=== PATIENT | female | born 1945 | race Caucasian/White ===

== ENCOUNTER → 2020-12-28 06:55 | Outpatient (CLI) | payer MEDICARE, SELFPAY ==
[2020-12-28 07:21] LABS: WBC Urine None Seen (0-5/HPF)
[2020-12-28 08:45] LABS: Alanine Aminotransferase 23 IU/L (<35); Albumin 4.3 g/dL (3.5-5.0); Albumin Globulin Ratio 1.6 (1.0-2.8); Alkaline Phosphatase 27 U/L (38-126); Aspartate Aminotransferase 33 IU/L (14-36); BUN Creatinine Ratio 30.5 (6-22); Bilirubin Total 0.2 mg/dL (0.2-1.3); Blood Urea Nitrogen 18 mg/dL (7-17); Calcium 9.2 mg/dL (8.4-10.2); Carbon Dioxide 29 mmol/L (22-32); Chloride 100 mmol/L (98-107); Cholesterol 168 mg/dL (140-199); Estimated Glomerular Filt Rate > 60.0 mL/min (>60); Globulin 2.7 g/dL (1.7-4.1); Glucose 94 mg/dL (80-110); HEMOLYSIS < 15 (0-50); Potassium 4.5 mmol/L (3.4-5.1); Sodium 133 mmol/L (137-145); Triglycerides 49 mg/dL (35-150)
[2020-12-28 08:56] LABS: HDL Cholesterol 116 mg/dL (40-60); LDL Cholesterol Calculated 42 mg/dL (<100)
[2020-12-28 09:37] LABS: Appearance Urine UA CLEAR; Bilirubin Urine UA NEGATIVE (NEGATIVE); Color Urine UA YELLOW; Glucose Urine UA NEGATIVE (Negative); Ketones Urine UA NEGATIVE (NEGATIVE); Leukocyte Esterase Urine UA NEGATIVE (NEGATIVE); Nitrite Urine UA NEGATIVE (Negative); Occult Blood Urine UA 1+ (Negative); Protein Urine UA NEGATIVE (Negative); Specific Gravity Urine UA 1.015 (1.000-1.035); Urobilinogen Urine UA 0.2 E.U./dL (0.2)
[2020-12-28 10:04] LABS: TSH w/ Reflex to FT4 0.77 uIU/mL (0.47-4.68)
[2020-12-28 11:15] LABS: Bacteria Urine Few (2-10); RBC Urine 0-1/HPF (0-5/HPF)
[2020-12-28 11:16] LABS: Culture Indicated Urine Cult Not Indicated
== END ==
PROVIDERS: PCP Internal Medicine; Referring Provider Internal Medicine; Visit Provider Internal Medicine
DX: E03.9 Hypothyroidism, unspecified (principal); M81.0 Age-related osteoporosis without current pathological fracture; R35.0 Frequency of micturition; E78.5 Hyperlipidemia, unspecified
CPT/HCPCS: 36415; 80053; 80061; 81001; 84443

== ENCOUNTER → 2021-01-02 14:37 | Outpatient (CLI) | payer MEDICARE, SELFPAY ==
--- NOTE | 2021-01-02 | DI.MG.S_ITS ---
BILATERAL DIGITAL SCREENING MAMMOGRAM 3D/2D WITH CAD: 01/02/2021 CLINICAL: Routine screening. Comparison is made to exams dated: 09/21/2019 mammogram, 08/17/2018 mammogram, and 06/05/2017 mammogram - outside location. The tissue of both breasts is heterogeneously dense. This may lower the sensitivity of mammography. Current study was also evaluated with a Computer Aided Detection (CAD) system. No significant masses, calcifications, or other findings are seen in either breast. There has been no significant interval change. IMPRESSION: NEGATIVE There is no mammographic evidence of malignancy. A 1 year screening mammogram is recommended. This exam was interpreted at Station ID: [id number]. NOTE: For mammograms, a report in lay terms will be sent to the patient. Approximately 15% of breast malignancies will not be visualized mammographically. In the management of a palpable breast mass, a negative mammogram must not discourage biopsy of a clinically suspicious lesion. Electronically Signed By: Tomasz rao/waqar:01/02/2021 16:56:29 letter sent: Normal Exam ACR BI-RADS Category 1: Negative 3341F
== END ==
PROVIDERS: PCP Internal Medicine; Referring Provider Internal Medicine; Visit Provider Internal Medicine
DX: Z12.31 Encounter for screening mammogram for malignant neoplasm of breast (principal); M81.0 Age-related osteoporosis without current pathological fracture; Z78.0 Asymptomatic menopausal state; E07.9 Disorder of thyroid, unspecified; Z87.891 Personal history of nicotine dependence
CPT/HCPCS: 77063; 77067; 77080

== ENCOUNTER → 2022-02-04 14:34 | Outpatient (CLI) | payer MEDICARE, SELFPAY ==
--- NOTE | 2022-02-04 14:35 | DI.MG.S_ITS ---
BILATERAL DIGITAL SCREENING MAMMOGRAM 3D/2D WITH CAD: 02/04/2022 CLINICAL: Routine screening. Comparison is made to exams dated: 01/02/2021 mammogram - [facility], 09/21/2019 mammogram, 08/17/2018 mammogram, and 06/05/2017 mammogram - outside location. The tissue of both breasts is extremely dense, which lowers the sensitivity of mammography. Current study was also evaluated with a Computer Aided Detection (CAD) system. No significant masses, calcifications, or other findings are seen in either breast. There has been no significant interval change. IMPRESSION: NEGATIVE There is no mammographic evidence of malignancy. A 1 year screening mammogram is recommended. This exam was interpreted at Station ID: [id number]. NOTE: For mammograms, a report in lay terms will be sent to the patient. Approximately 15% of breast malignancies will not be visualized mammographically. In the management of a palpable breast mass, a negative mammogram must not discourage biopsy of a clinically suspicious lesion. Electronically Signed By: Danna tejada/waqar:02/04/2022 15:01:52 letter sent: Normal Exam ACR BI-RADS Category 1: Negative 3341F
== END ==
PROVIDERS: PCP Internal Medicine; Referring Provider Internal Medicine; Visit Provider Internal Medicine
DX: Z12.31 Encounter for screening mammogram for malignant neoplasm of breast (principal)
CPT/HCPCS: 77063; 77067

== ENCOUNTER → 2023-05-30 16:05 | Outpatient (CLI) | payer MEDICARE, SELFPAY | PROVIDERS: PCP Internal Medicine; Visit Provider Nurse Practitioner Family | DX: R30.0 Dysuria (principal) | CPT/HCPCS: 87086 ==

== ENCOUNTER → 2023-07-17 16:29 | Outpatient (CLI) | payer MEDICARE, SELFPAY ==
[2023-07-17 17:58] LABS: Influenza A - CEPHEID Flu A NEGATIVE (NEGATIVE); Influenza B - CEPHEID Flu B NEGATIVE (NEGATIVE); Respiratory Syncytial Virus Negative (Negative)
[2023-07-17 18:04] LABS: COVID-19 CEPHEID 4-PLEX PCR Negative (Negative)
== END ==
PROVIDERS: PCP Internal Medicine; Visit Provider Nurse Practitioner Family
DX: R05.9 Cough, unspecified (principal)
CPT/HCPCS: 0241U

== ENCOUNTER → 2024-04-30 13:53 | Outpatient (CLI) | payer MEDICARE, SELFPAY ==
--- NOTE | 2024-04-30 | DI.MG.S_ITS ---
BILATERAL DIGITAL SCREENING MAMMOGRAM 3D/2D WITH CAD: 04/30/2024 CLINICAL: Routine screening. Family history of breast cancer. Comparison is made to exams dated: 02/04/2022 mammogram, 01/02/2021 mammogram - [facility], and 09/21/2019 mammogram - outside location. Both breasts are extremely dense, which lowers the sensitivity of mammography (category d />75% glandular tissue). Current study was also evaluated with a Computer Aided Detection (CAD) system. No significant masses, calcifications, or other findings are seen in either breast. There has been no significant interval change. IMPRESSION: NEGATIVE There is no mammographic evidence of malignancy. A 1 year screening mammogram is recommended. Based on the Tyrer Cuzick model (a risk assessment model) the patient's lifetime risk is 5.5% and her 10 year risk is 0.0%. According to the ACR, ACS, and NCCN guidelines, an annual breast MRI exam along with mammogram is recommended if the patient's lifetime risk is 20% or greater. This exam was interpreted at Station ID: [id number]. NOTE: For mammograms, a report in lay terms will be sent to the patient. Approximately 15% of breast malignancies will not be visualized mammographically. In the management of a palpable breast mass, a negative mammogram must not discourage biopsy of a clinically suspicious lesion. Electronically Signed By: Tomasz rao/waqar:04/30/2024 15:19:36 letter sent: Normal Exam ACR BI-RADS Category 1: Negative 3341F
== END ==
LOC: MAMMO 13:54
PROVIDERS: PCP Internal Medicine; Referring Provider Internal Medicine; Visit Provider Internal Medicine
DX: Z12.31 Encounter for screening mammogram for malignant neoplasm of breast (principal); R92.343 Mammographic extreme density, bilateral breasts
CPT/HCPCS: 77063; 77067

== ENCOUNTER → 2025-05-06 12:52 | Outpatient (CLI) | payer MEDICARE, SELFPAY ==
--- NOTE | 2025-05-06 12:54 | DI.MG.S_ITS ---
MM screening mammo BI: 05/06/2025. BI-RADS: 1 CLINICAL: 79-year old female for bilateral screening mammogram. Tyrer-Cuzick lifetime risk of 2.9%. Current reported family history of breast cancer: mother. History of ovarian cancer in one first-degree relative. PRIOR EXAMS 04/30/2024, 02/04/2022, 01/02/2021. MAMMOGRAPHY TECHNIQUE: 2D and 3D (tomosynthesis) digital mammographic views obtained, with additional images as needed for full coverage. Current study was also evaluated with a Computer Aided Detection (CAD) system. DENSITY C. The breasts are heterogeneously dense, which may obscure small masses. MAMMOGRAPHY FINDINGS Bilateral: No suspicious mass, asymmetry, microcalcification, or other abnormality seen. No significant change from comparison. IMPRESSION: * No evidence of malignancy. RECOMMENDATIONS Bilateral * Annual screening mammography. OVERALL ASSESSMENT CATEGORY BI-RADS-1: Negative. The [employer] recommends annual screening mammography beginning at age 40 for women with average risk of breast cancer. ELECTRONICALLY SIGNED: Kenyatta Michaels M.D. on 05/06/2025 at 04:20:20 PM PT Interpreting Station ID: [id number]
== END ==
PROVIDERS: PCP Internal Medicine; Referring Provider Internal Medicine; Visit Provider Internal Medicine
DX: Z12.31 Encounter for screening mammogram for malignant neoplasm of breast (principal); R92.333 Mammographic heterogeneous density, bilateral breasts; Z80.3 Family history of malignant neoplasm of breast; Z80.41 Family history of malignant neoplasm of ovary
CPT/HCPCS: 77063; 77067

== ENCOUNTER 2025-08-30 20:57 | Inpatient (IN) | payer MEDICARE, SELFPAY ==
[2025-08-30] VITALS (14 sets, daily range): BP systolic 120–187; BP diastolic 59–83; PULSE 82–114; RESP 15–24; TEMP 37.3–39.4; O2SAT 88–98; BMI 21.4
--- NOTE | 2025-08-30 21:00 | PC.NURSE ---
Pt received 250mL NS during EMS transport. Verbal orders from provider to initiate sepsis fluid protocol. Pt was given additional 250 mL NL bolus from EMS bag plus 1 L ordered bolus for a total of 1.5L.
--- NOTE | 2025-08-30 21:02 | EKG_ITS ---
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
[2025-08-30 21:18] LABS: Add Manual Diff / Slide Review NO; Hematocrit 34.7 % (36-46); Hemoglobin 11.9 g/dL (12.0-16.0); Lymphocytes Absolute Auto 600 /uL (1100-4500); Mean Corpuscular HGB Conc 34.4 % (30-36); Mean Corpuscular Hemoglobin 31.7 PG (26-34); Mean Corpuscular Volume 92.1 fL (80-100); Platelet Count 188 X10^3/uL (150-400)
--- NOTE | 2025-08-30 21:18 | ED_ITS ---
HPI - Fever General Chief Complaint: Altered Mental Status Stated Complaint: Altered, known infection Time Seen by Provider: 08/30/25 21:01 History of Present Illness HPI Narrative: Patient is sent here by ambulance from home for fever and confusion. Patient is awake alert oriented x3 at this time. She say she has had some urinary discomfort for the past few days. No fall or injury. Patient denies any chest pain abdominal pain headache. No neck pain. Patient given Tylenol by EMS. No nausea or vomiting or diarrhea. No cough cold or congestion. Related Data Home Medications ?Medication ?Instructions ?Recorded ?Confirmed levothyroxine 50 mcg tablet 50 mcg PO DAILY 08/31/25 1 10/31/24 Previous Rx's ?Medication ?Instructions ?Recorded fluticasone propionate 50 1 spray intranasal Q12H #16 grams 07/17/23 mcg/actuation nasal spray,suspension (Flonase Allergy Relief) Allergies Allergy/AdvReac Type Severity Reaction Status Date / Time No Known Drug Allergies Allergy Verified 08/30/25 23:05 Review of Systems Review of Systems Narrative: GENERAL: Positive chills, fatigue, malaise, fever, negative sweats. HEENT: Negative sinus pain, ear pain, sore throat RESPIRATORY: Negative dyspnea, cough CARDIOVASCULAR: Negative chest pain, palpitations GASTROINTESTINAL: Negative vomiting, nausea, abdominal pain : Positive dysuria, frequency, negative hematuria MUSCULOSKELETAL: Negative muscle or bony pain SKIN: Negative rash, skin lesions NEUROLOGIC: Negative weakness, numbness ROS Unobtainable: All systems reviewed & are unremarkable except as noted in HPI and below Patient History Social History household members: friend(s) Smoking Status: Former smoker Exam Narrative Exam Narrative: GENERAL: in no distress, not toxic not dyspneic, cachectic appearing HEAD: Normocephalic. EYES: Pupils equal round ENT: Mucous membranes dry NECK: Trachea midline. CARDIOVASCULAR: Regular rate and rhythm, tachycardic RESPIRATORY: Clear to auscultation. Breath sounds equal bilaterally. No wheezes, rales, or rhonchi. GASTROINTESTINAL: Abdomen soft, non-tender BACK: No flank tenderness. EXTREMITIES: No gross deformities. NEURO: AOx3. Clear speech SKIN: Warm and dry PSYCH: Not anxious, is cooperative Initial Vital Signs Initial Vital Signs: Vital Signs Pulse Rate 114 H 08/30/25 21:02 Blood Pressure 187/83 H 08/30/25 21:02 Course Orders Ordered: Acetaminophen (Acetaminophen 325 Mg Tablet) 650 mg PO Q6H PRN PRN Reason: Fever/Mild Pain (1-3) Docusate Sodium (Docusate 100 Mg Capsule) 100 mg PO DAILY [facility] Last Admin: 09/02/25 08:50 Dose: 100 mg Documented By: Admin: 09/01/25 08:08 Dose: 100 mg Documented By: Admin: 08/31/25 12:18 Dose: 100 mg Documented By: JOSE Fluticasone Propionate (Fluticasone 120 [place]/16 Gm [place].Susp) 1 spray NASAL Q12H [facility] Last Admin: 09/02/25 03:15 Dose: 1 spray Documented By: Admin: 09/01/25 14:41 Dose: 1 spray Documented By: Admin: 09/01/25 03:15 Dose: 1 spray Documented By: Admin: 08/31/25 14:42 Dose: 1 spray Documented By: Admin: 08/31/25 03:56 Dose: Not Given Documented By: RENAN Heparin Sodium (Porcine) (Heparin 5,000 Unit/Ml Vial) 5,000 unit SUBCUT BID [facility] Last Admin: 09/02/25 08:50 Dose: 5,000 unit Documented By: Admin: 09/01/25 21:03 Dose: 5,000 unit Documented By: Admin: 09/01/25 08:08 Dose: 5,000 unit Documented By: Admin: 08/31/25 20:43 Dose: 5,000 unit Documented By: Admin: 08/31/25 08:23 Dose: 5,000 unit Documented By: JOSE Ceftriaxone Sodium 2,000 mg/ (Sodium Chloride) 100 mls @ 200 mls/hr IV DAILY [facility] Levothyroxine Sodium (Levothyroxine 50 Mcg Tablet) 50 mcg PO 0600 [facility] Last Admin: 09/02/25 06:00 Dose: 50 mcg Documented By: Admin: 09/01/25 05:57 Dose: 50 mcg Documented By: Admin: 08/31/25 06:12 Dose: 50 mcg Documented By: RENAN Naloxone HCl (Naloxone 0.4 Mg/Ml Vial) 0.2 mg IV Q2MIN PRN PRN Reason: Opiate Reversal Ondansetron HCl (Ondansetron 4 Mg/2 Ml Inj) 4 mg IV Q8HR PRN PRN Reason: Nausea And Vomiting Last Admin: 08/31/25 20:52 Dose: 4 mg Documented By: KG Polyethylene Glycol (Polyethylene Glycol 3350 17 Gm Powd.Pack) 17 gm PO DAILY PRN PRN Reason: consitpation Last Admin: 09/01/25 14:01 Dose: 17 gm Documented By: Admin: 08/31/25 14:41 Dose: 17 gm Documented By: JOSE Sennosides (Sennosides 8.6 Mg Tablet) 8.6 mg PO BID [facility] Last Admin: 09/02/25 08:50 Dose: 8.6 mg Documented By: Admin: 09/01/25 21:03 Dose: 8.6 mg Documented By: Admin: 09/01/25 08:09 Dose: 8.6 mg Documented By: Admin: 08/31/25 20:42 Dose: 8.6 mg Documented By: Admin: 08/31/25 12:19 Dose: 8.6 mg Documented By: JOSE Discontinued Medications Piperacillin Sod/Tazobactam (Sod 4.5 gm/ Sodium Chloride) 100 mls @ 200 mls/hr IV STAT ONE Stop: 08/30/25 21:03 Last Infusion: 08/30/25 22:36 Dose: Infused Documented By: RLCarolina Admin: 08/30/25 21:21 Dose: 200 mls/hr Documented By: YUNG Acetaminophen (Ofirmev) 1,000 mg in 100 mls @ 400 mls/hr IV NOW ONE Stop: 08/30/25 21:21 Last Admin: 08/30/25 21:31 Dose: Not Given Documented By: YUNG Sodium Chloride (Normal Saline 0.9%) 1,000 mls @ 0 mls/hr IV NOW ONE Stop: 08/30/25 21:13 Last Infusion: 08/30/25 22:36 Dose: Infused Documented By: Admin: 08/30/25 21:21 Dose: 1,000 mls/hr Documented By: YUNG Sodium Chloride (Normal Saline 0.9%) 1,000 mls @ 75 mls/hr IV CONT [facility] Last Infusion: 09/01/25 14:36 Dose: 0 mls/hr Documented By: Admin: 09/01/25 05:03 Dose: 75 mls/hr Documented By: Infusion: 09/01/25 05:03 Dose: Infused Documented By: Admin: 08/31/25 16:54 Dose: 75 mls/hr Documented By: Infusion: 08/31/25 16:54 Dose: Infused Documented By: Admin: 08/31/25 03:56 Dose: 75 mls/hr Documented By: RENAN Ceftriaxone Sodium 1,000 mg/ (Sodium Chloride) 100 mls @ 200 mls/hr IV DAILY [facility] Last Infusion: 08/31/25 09:22 Dose: Infused Documented By: Admin: 08/31/25 08:23 Dose: 200 mls/hr Documented By: JOSE Ceftriaxone Sodium 2,000 mg/ (Sodium Chloride) 100 mls @ 200 mls/hr IV DAILY [facility] Last Infusion: 09/01/25 09:40 Dose: Infused Documented By: Admin: 09/01/25 08:09 Dose: Not Given Documented By: Admin: 09/01/25 08:08 Dose: 200 mls/hr Documented By: CARMEN Potassium Chloride (Potassium Chloride 20 Meq Tab) 40 meq PO Q6H [facility] Stop: 08/31/25 16:31 Last Admin: 08/31/25 16:53 Dose: 40 meq Documented By: Admin: 08/31/25 12:19 Dose: 40 meq Documented By: JOSE Potassium Chloride (Potassium Chloride 20 Meq Tab) 40 meq PO NOW ONE Stop: 09/01/25 07:54 Last Admin: 09/01/25 08:08 Dose: 40 meq Documented By: CARMEN Vital Signs Vital signs: Vital Signs - 8 hr 08/30/25 21:02 08/30/25 21:02 08/30/25 21:15 Temperature 103 F H Pulse Rate 114 H 112 H Respiratory Rate 20 Blood Pressure 187/83 H 187/83 H Pulse Oximetry 94 Oxygen Delivery Method Room Air Oxygen Flow Rate 08/30/25 21:35 08/30/25 21:37 08/30/25 21:37 Temperature Pulse Rate 100 H 99 H Respiratory Rate 24 19 Blood Pressure 150/69 H Pulse Oximetry 92 93 Oxygen Delivery Method Oxygen Flow Rate 08/30/25 21:50 08/30/25 22:00 08/30/25 22:00 Temperature 100.4 F H 100 F H Pulse Rate 95 H Respiratory Rate 21 Blood Pressure 141/63 H Pulse Oximetry 88 L Oxygen Delivery Method Room Air Oxygen Flow Rate 08/30/25 22:15 08/30/25 22:15 08/30/25 22:30 Temperature Pulse Rate 92 H 91 H Respiratory Rate 19 17 Blood Pressure 135/63 Pulse Oximetry 95 96 Oxygen Delivery Method Nasal Cannula Oxygen Flow Rate 2 08/30/25 22:30 08/30/25 22:45 08/30/25 22:45 Temperature Pulse Rate 91 H Respiratory Rate 16 Blood Pressure 125/59 L 127/60 Pulse Oximetry 96 Oxygen Delivery Method Oxygen Flow Rate 08/30/25 22:55 08/30/25 23:00 08/30/25 23:00 Temperature 99.1 F Pulse Rate 88 Respiratory Rate 18 Blood Pressure 120/60 Pulse Oximetry 95 Oxygen Delivery Method Oxygen Flow Rate 08/30/25 23:15 08/30/25 23:15 Temperature Pulse Rate 86 Respiratory Rate 16 Blood Pressure 133/64 Pulse Oximetry 97 Oxygen Delivery Method Oxygen Flow Rate MDM - Fever Lab Data 09/02/25 08:08 09/02/25 08:08 Labs: Lab Results 08/30/25 08/30/25 08/30/25 Range/Units 20:55 21:05 22:50 WBC 16.1 H (4.5-11.0) X10^3/uL RBC 3.76 L (4.0-5.2) X10^6/uL Hgb 11.9 L (12.0-16.0) g/dL Hct 34.7 L (36-46) % MCV 92.1 (80-100) fL MCH 31.7 (26-34) PG MCHC 34.4 (30-36) % RDW 14.4 (11.6-14.8) % Plt Count 188 (150-400) X10^3/uL Neut % (Auto) 93.5 H (50-75) % Lymph % (Auto) 3.7 L (25-40) % [place] % (Auto) 2.6 L (3-14) % Eos % (Auto) 0.0 L (2-4) % Baso % (Auto) 0.2 (0-2) % Neut # (Auto) 97295 H (8620-3625) /uL Lymph # (Auto) 600 L (5897-5785) /uL [place] # (Auto) 400 (0-900) /uL Eos # (Auto) 0 (0-450) /uL Baso # (Auto) 0 (0-100) /uL PT 14.1 H (9.4-12.5) SECONDS INR 1.2 (0.9-1.3) APTT 29 (25.1-36.5) SECONDS Sodium 128 L (137-145) mmol/L Potassium 3.6 (3.4-5.1) mmol/L Chloride 93 L (98-107) mmol/L Carbon Dioxide 22 (22-32) mmol/L BUN 26 H (7-17) mg/dL Creatinine 0.99 (0.52-1.04) mg/dL Estimated GFR 57 L (>60) mL/min BUN/Creatinine Ratio 26.3 H (6-22) Glucose 129 H (70-99) mg/dL Lactate 2.4 H (0.7-2.1) mmol/L Calcium 9.4 (8.4-10.2) mg/dL Total Bilirubin 0.6 (0.2-1.3) mg/dL AST 84 H (14-36) IU/L ALT 53 H (<35) IU/L Alkaline Phosphatase 79 (38-126) U/L Total Protein 8.0 (6.3-8.2) g/dL Albumin 4.4 (3.5-5.0) g/dL Globulin 3.6 (1.7-4.1) g/dL Albumin/Globulin Ratio 1.2 (1.0-2.8) Procalcitonin 1.55 H (<0.5) ng/mL Urine Color Yellow Urine Appearance Cloudy Urine pH 7.5 (4.5-8.0) Ur Specific [place] 1.015 (1.000-1.035) Urine Protein 2+ H (Negative) Urine Glucose (UA) Negative (Negative) g/dL Urine Ketones Trace H (NEGATIVE) Urine Occult Blood 3+ H (Negative) Urine Nitrate Positive H (Negative) Urine Bilirubin Negative (NEGATIVE) Urine Urobilinogen 0.2 (0.2) E.U./dL Ur Leukocyte Esterase 3+ H (NEGATIVE) Urine RBC 5-10/hpf H (0-5/HPF) Urine WBC 30-100/hpf H (0-5/HPF) Ur Squamous Epith Cells 0-1 /hpf (0-5/HPF) Urine Bacteria Many (>30) H (None) Ur Culture Indicated? Specimen cultured Vol Urine Centrifuged 10ml (spun) A.calcoaceticus-baumannii cmplx PCR Not detected (Not Detect) Bacteroides fragilis Not detected (Not Detect) Elle albicans (PCR) Not detected (Not Detect) Elle auris (PCR) Not detected (Not Detect) C. glabrata (PCR) Not detected (Not Detect) C. krusei (PCR) Not detected (Not Detect) C. parapsilosis (PCR) Not detected (Not Detect) C. tropicalis (PCR) Not detected (Not Detect) C. neoform/gattii (PCR) Not detected (Not Detect) Enterobacterales (PCR) Detected (Not Detect) E. cloacae complex PCR Not detected (Not Detect) Enterococc faecalis PCR Not detected (Not Detect) Enterococc faecium PCR Not detected (Not Detect) E. coli (PCR) Detected (Not Detect) H. influenzae (PCR) Not detected (Not Detect) Klebsiella aerogenes (PCR) Not detected (Not Detect) Klebsiella oxytoca PCR Not detected (Not Detect) Klebsiella pneumoniae Not detected (Not Detect) List. monocytogenes PCR Not detected (Not Detect) N. meningitidis (PCR) Not detected (Not Detect) Proteus species (PCR) Not detected (Not Detect) Salmonella spp. (PCR) Not detected (Not Detect) Serratia marcescens PCR Not detected (Not Detect) Staphylococcus sp PCR Not detected (Not Detect) Staph aureus (PCR) Not detected (Not Detect) mecA/C & MREJ Resist Gene Not applicable (Not Detect) mecA/C-Methicil Resis Gene Not applicable (Not Detect) mcr-1 Colistin Res Gene PCR Not detected (Not Detect) Staph epidermidis (PCR) Not detected (Not Detect) Staph lugdunensis PCR Not detected (Not Detect) S. maltophilia (PCR) Not detected (Not Detect) Streptococcus sp PCR Not detected (Not Detect) Group A Strep (PCR) Not detected (Not Detect) Strep agalactiae (PCR) Not detected (Not Detect) Strep pneumoniae (PCR) Not detected (Not Detect) P. aeruginosa (PCR) Not detected (Not Detect) Lang/B-Vanco Res Genes Not applicable (Not Detect) blaIMP Car res Gene PCR Not detected (Not Detect) KPC-Carbap Res Gene PCR Not detected (Not Detect) blaNDM Car Res Gene PCR Not detected (Not Detect) OXA-48 Carbapenem Resis Gene (PCR) Not detected (Not Detect) blaVIM Car Res Gene PCR Not detected (Not Detect) CTX-M Gene Resistance (PCR) Not detected (Not Detect) 08/30/25 Range/Units 22:55 WBC (4.5-11.0) X10^3/uL RBC (4.0-5.2) X10^6/uL Hgb (12.0-16.0) g/dL Hct (36-46) % MCV (80-100) fL MCH (26-34) PG MCHC (30-36) % RDW (11.6-14.8) % Plt Count (150-400) X10^3/uL Neut % (Auto) (50-75) % Lymph % (Auto) (25-40) % [place] % (Auto) (3-14) % Eos % (Auto) (2-4) % Baso % (Auto) (0-2) % Neut # (Auto) (5865-8615) /uL Lymph # (Auto) (4862-6059) /uL [place] # (Auto) (0-900) /uL Eos # (Auto) (0-450) /uL Baso # (Auto) (0-100) /uL PT (9.4-12.5) SECONDS INR (0.9-1.3) APTT (25.1-36.5) SECONDS Sodium (137-145) mmol/L Potassium (3.4-5.1) mmol/L Chloride (98-107) mmol/L Carbon Dioxide (22-32) mmol/L BUN (7-17) mg/dL Creatinine (0.52-1.04) mg/dL Estimated GFR (>60) mL/min BUN/Creatinine Ratio (6-22) Glucose (70-99) mg/dL Lactate 0.6 L (0.7-2.1) mmol/L Calcium (8.4-10.2) mg/dL Total Bilirubin (0.2-1.3) mg/dL AST (14-36) IU/L ALT (<35) IU/L Alkaline Phosphatase (38-126) U/L Total Protein (6.3-8.2) g/dL Albumin (3.5-5.0) g/dL Globulin (1.7-4.1) g/dL Albumin/Globulin Ratio (1.0-2.8) Procalcitonin (<0.5) ng/mL Urine Color Urine Appearance Urine pH (4.5-8.0) Ur Specific [place] (1.000-1.035) Urine Protein (Negative) Urine Glucose (UA) (Negative) g/dL Urine Ketones (NEGATIVE) Urine Occult Blood (Negative) Urine Nitrate (Negative) Urine Bilirubin (NEGATIVE) Urine Urobilinogen (0.2) E.U./dL Ur Leukocyte Esterase (NEGATIVE) Urine RBC (0-5/HPF) Urine WBC (0-5/HPF) Ur Squamous Epith Cells (0-5/HPF) Urine Bacteria (None) Ur Culture Indicated? Vol Urine Centrifuged A.calcoaceticus-baumannii cmplx PCR (Not Detect) Bacteroides fragilis (Not Detect) Elle albicans (PCR) (Not Detect) Elle auris (PCR) (Not Detect) C. glabrata (PCR) (Not Detect) C. krusei (PCR) (Not Detect) C. parapsilosis (PCR) (Not Detect) C. tropicalis (PCR) (Not Detect) C. neoform/gattii (PCR) (Not Detect) Enterobacterales (PCR) (Not Detect) E. cloacae complex PCR (Not Detect) Enterococc faecalis PCR (Not Detect) Enterococc faecium PCR (Not Detect) E. coli (PCR) (Not Detect) H. influenzae (PCR) (Not Detect) Klebsiella aerogenes (PCR) (Not Detect) Klebsiella oxytoca PCR (Not Detect) Klebsiella pneumoniae (Not Detect) List. monocytogenes PCR (Not Detect) N. meningitidis (PCR) (Not Detect) Proteus species (PCR) (Not Detect) Salmonella spp. (PCR) (Not Detect) Serratia marcescens PCR (Not Detect) Staphylococcus sp PCR (Not Detect) Staph aureus (PCR) (Not Detect) mecA/C & MREJ Resist Gene (Not Detect) mecA/C-Methicil Resis Gene (Not Detect) mcr-1 Colistin Res Gene PCR (Not Detect) Staph epidermidis (PCR) (Not Detect) Staph lugdunensis PCR (Not Detect) S. maltophilia (PCR) (Not Detect) Streptococcus sp PCR (Not Detect) Group A Strep (PCR) (Not Detect) Strep agalactiae (PCR) (Not Detect) Strep pneumoniae (PCR) (Not Detect) P. aeruginosa (PCR) (Not Detect) Lang/B-Vanco Res Genes (Not Detect) blaIMP Car res Gene PCR (Not Detect) KPC-Carbap Res Gene PCR (Not Detect) blaNDM Car Res Gene PCR (Not Detect) OXA-48 Carbapenem Resis Gene (PCR) (Not Detect) blaVIM Car Res Gene PCR (Not Detect) CTX-M Gene Resistance (PCR) (Not Detect) Imaging Data CT chest abdomen and pelvis: Radiologist's Impression: [address] [address] [address] Scan Report Signed Patient: Anuradha Mcdaniel MR#: [id number] : 1945 Acct:[id number] Age/Sex: 80 / F Date of Service: 08/30/25 Loc: ED Accession Number: [id number] Procedure: CT chest abd pel wo con Ordering Provider: Giancarlo Muñoz MD PROCEDURE: CT CHEST ABD PEL WO CON INDICATIONS: Sepsis TECHNIQUE: After the administration of oral contrast, 5 mm thick sections acquired from the lung apices to the symphysis pubis. 5 mm thick coronal and sagittal reformats acquired, with additional 7 mm coronal MIP reformats through the lungs. For radiation dose reduction, the following was used: automated exposure control, adjustment of mA and/or kV according to patient size. COMPARISON: None. FINDINGS: Image quality: Diagnostic. CHEST: Lower Neck: No enlarged lymph nodes. Thyroid: No thyroid nodules which require sonographic follow up, per consensus guidelines. Axillae: No enlarged lymph nodes. Chest Wall: Unremarkable. Bones: Visualized osseous structures appear intact without acute fracture or focal destructive lesion. No acute compression fractures of the imaged spine. Lungs and Pleura: No pneumothorax or pleural effusions. No consolidation or suspicious nodules. Visualized airways appear patent. No septal thickening or nodularity. Heart: Heart size is normal. No pericardial effusion. Thoracic Vessels: The aorta and pulmonary arteries demonstrate normal size. Mediastinum and Daily: No enlarged lymph nodes. Esophagus: No wall thickening. No hiatal hernia. ABDOMEN: Liver: No solid mass. Gallbladder: Gallbladder distension. No evidence for wall thickening or radiodense gallstone. Biliary ducts: No biliary dilation. Pancreas: No ductal dilation. Spleen: Size is within normal limits. Adrenal Glands: No adrenal nodules. Kidneys and Ureters: No hydronephrosis. Small extrarenal pelvis on the right. No solid mass. No complex renal cystic lesion which requires follow up. Stomach and Bowel: Colonic diverticulosis without evidence for acute diverticulitis. Large amount of fecal material seen throughout the colon and rectum. There is mild rectal distension. No significant rectal wall thickening or inflammation. There is also suggestion of mild circumferential wall thickening of the proximal ascending colon and distal /terminal ileum with associated fecalization of distal small bowel. No evidence for small bowel obstruction proximally. Peritoneum: No abnormal intraperitoneal fluid. No free air. Ventral Wall: No hernia. Abdominal Nodes: No retroperitoneal or mesenteric adenopathy by size criteria. Vessels: Aorta and inferior vena cava are normal in size. Dense atherosclerotic calcifications. PELVIS: Pelvic Organs: Unremarkable. A pessary ring is noted. Bladder: Moderate urinary bladder distention. No wall thickening. Pelvic Nodes: No enlarged lymph nodes. Miscellaneous: No inguinal hernias are seen. Bones: No aggressive osseous abnormality. No acute vertebral body compression fractures. Multilevel spondylitic changes throughout the imaged spine. No suspicious osseous lesions. Status post left total hip arthroplasty. Moderate beam hardening/streak artifact from surgical hardware obscures visualization of the adjacent structures of the lower pelvis. IMPRESSION: 1. Large fecal burden seen throughout the colon but most pronounced in the rectum and distal left colon. Findings are consistent with constipation. Additionally, mild circumferential wall thickening of the proximal ascending colon and distal small bowel with associated fecalization. Mild enterocolitis may have a similar appearance. 2. Mildly distended gallbladder without wall thickening or radiodense gallstone. This is favored to represent fasting state. However, recommend clinical correlation for right upper quadrant pain. 3. Colonic diverticulosis without acute diverticulitis. 4. Other chronic/non-acute findings as above. Dictated by: Sharath Dawson M.D. on 08/30/2025 at 21:49 Approved by: Sharath Dawson M.D. on 08/30/2025 at 22:01 MDM Narrative Medical decision making narrative: Patient here for lightheadedness and low heart rate and nausea. And dizziness. Occurred around 11:00 a.m. today. Has been symptomatic since then. Patient is not on any beta blockers. Patient has no history arrhythmia. No recent illness. She has been treated for a knee infection with antibiotics. Oral antibiotics. However this is been ongoing for the past 4 months. Otherwise no new medications. Denies any chest pain or shortness of breath. No syncope. MDM After history and exam, CBC CMP blood culture lactic acid procalcitonin CT chest abdomen pelvis urinalysis and Zosyn IV fluids sepsis protocol Differential considered: Includes but not limited to sepsis UTI pneumonia Medical records reviewed: No recent visit for this complaint Lab Test results independently reviewed as above. Pertinent findings: Independently reviewed EKG sinus tachycardia rate [address] elevation or depression Imaging studies independently reviewed: CT chest abdomen pelvis no acute finding Consultations: 12:06 a.m.. Spoke with hospitalist, Dr. Coates, will admit patient Re-evaluations: Patient does agree for admission. Blood pressure has improved 133/64 temperature 99.1? patient in no distress. She does agree for admission. Antibiotics have been started. Discussion: Appropriate for admission for early sepsis/IV antibiotics. Patient hemodynamically stable. Diagnosis: UTI Discharge Plan Departure Patient Disposition: Admitted As Inpatient Clinical Impression: Acute UTI Admit Date/Time: 08/31/25 00:06 Admit Provider: Grayson Coates
[2025-08-30 21:21] LABS: INR 1.2 (0.9-1.3); Prothrombin Time 14.1 SECONDS (9.4-12.5)
[2025-08-30] MEDS: SODIUM CHLORIDE 0.9% 1,000 ML 1000 ML IV (21:21)
[2025-08-30] MEDS: PIPERACILLIN/TAZO 4.5 GM in SODIUM CHLORIDE 0.9% 100 ML IV (21:21)
[2025-08-30 21:23] LABS: PTT Partial Thromboplastin Tim 29 SECONDS (25.1-36.5)
[2025-08-30 21:26] LABS: Alanine Aminotransferase 53 IU/L (<35); Albumin 4.4 g/dL (3.5-5.0); Albumin Globulin Ratio 1.2 (1.0-2.8); Alkaline Phosphatase 79 U/L (38-126); Blood Urea Nitrogen 26 mg/dL (7-17); Calcium 9.4 mg/dL (8.4-10.2); Carbon Dioxide 22 mmol/L (22-32); Chloride 93 mmol/L (98-107); Estimated Glomerular Filt Rate 57 mL/min (>60); Globulin 3.6 g/dL (1.7-4.1); Glucose 129 mg/dL (70-99); HEMOLYSIS < 15 (0-50); Potassium 3.6 mmol/L (3.4-5.1); Sodium 128 mmol/L (137-145); Total Protein 8.0 g/dL (6.3-8.2)
[2025-08-30 21:27] LABS: Lactate (Lactic Acid) 2.4 mmol/L (0.7-2.1)
[2025-08-30 21:43] LABS: Procalcitonin 1.55 ng/mL (<0.5)
[2025-08-30 22:49] LABS: Reflexed Lactate in 2 Hours Y
[2025-08-30 23:13] LABS: Lactate 2HR (Lactic Acid Rflx) 0.6 mmol/L (0.7-2.1)
[2025-08-30 23:17] LABS: Bilirubin Urine UA NEGATIVE (NEGATIVE); Color Urine UA YELLOW; Glucose Urine UA NEGATIVE (Negative); Ketones Urine UA TRACE (NEGATIVE); Leukocyte Esterase Urine UA 3+ (NEGATIVE); Nitrite Urine UA POSITIVE (Negative); Occult Blood Urine UA 3+ (Negative); Protein Urine UA 2+ (Negative); Specific Gravity Urine UA 1.015 (1.000-1.035); Urobilinogen Urine UA 0.2 E.U./dL (0.2)
[2025-08-30 23:18] LABS: Appearance Urine UA CLOUDY; pH Urine UA 7.5 (4.5-8.0)
[2025-08-30 23:38] LABS: Culture Indicated Urine Specimen Cultured
[2025-08-31] VITALS: BP 140/71; PULSE 82; RESP 17; O2SAT 98
[2025-08-31 00:15] VITALS: BP 165/79; PULSE 87; RESP 19; O2SAT 97
[2025-08-31 00:30] VITALS: BP 147/76; PULSE 82; RESP 17; O2SAT 98
[2025-08-31 01:00] VITALS: BP 162/69; PULSE 89; RESP 18; TEMP 36.4; O2SAT 98
[2025-08-31 01:45] VITALS: BMI 21.4
[2025-08-31] MEDS: SODIUM CHLORIDE 0.9% 1,000 ML 75 ML IV ×2 (03:56→16:54)
[2025-08-31 05:21] LABS: Add Manual Diff / Slide Review NO; Hematocrit 31.3 % (36-46); Hemoglobin 10.7 g/dL (12.0-16.0); Lymphocytes Absolute Auto 500 /uL (1100-4500); Mean Corpuscular HGB Conc 34.1 % (30-36); Mean Corpuscular Hemoglobin 31.7 PG (26-34); Mean Corpuscular Volume 93.0 fL (80-100); Platelet Count 179 X10^3/uL (150-400)
[2025-08-31 05:32] LABS: Blood Urea Nitrogen 22 mg/dL (7-17); Calcium 8.0 mg/dL (8.4-10.2); Carbon Dioxide 22 mmol/L (22-32); Chloride 101 mmol/L (98-107); Estimated Glomerular Filt Rate > 60 mL/min (>60); Glucose 118 mg/dL (70-99); HEMOLYSIS < 15 (0-50); Potassium 3.2 mmol/L (3.4-5.1); Sodium 134 mmol/L (137-145)
--- NOTE | 2025-08-31 05:42 | PM.HP.1 ---
History of Present Illness History of Present Illness Date Patient Seen: 08/30/25 Time Patient Seen: 23:15 Chief complaint: Altered, known infection Narrative: 80-year-old female with past medical history of hypothyroidism presents with complaint of dysuria. Per the patient's report, the patient presented with a fever and confusion. When the patient arrived to ER, the patient was oriented x 3 and was able to give some history. The patient stated over the last few days the patient has some dysuria. Today the patient had a fever but denies any chills, nausea, vomiting, diarrhea, chest pain or shortness of breath. The patient also denies any cough or congestion. In the emergency room, the patient was hemodynamically stable but did have a fever. Labs shows a WBC of 16 sodium 128 glucose 129 with lactic acid 2.4. The patient was given IV Zosyn and repeat lactate after IV fluid was 0.6. In addition CT abdomen shows severe constipation. Sepsis. Admit the patient to medical telemetry as inpatient. Of note the patient did have UTI as well as leukocytosis and elevated lactic acid. The patient remained hemodynamically stable. Treat underlying infection and monitor hemodynamics. PFSH Social History household members: friend(s) Smoking Status: Former smoker Meds Home Medications and Allergies Home Medications ?Medication ?Instructions ?Recorded ?Confirmed ?Type fluticasone propionate 50 1 spray intranasal Q12H #16 grams 07/17/23 08/31/25 Rx mcg/actuation nasal spray,suspension (Flonase Allergy Relief) levothyroxine 50 mcg tablet 50 mcg PO DAILY 08/31/25 08/31/25 History Allergies Allergy/AdvReac Type Severity Reaction Status Date / Time No Known Drug Allergies Allergy Verified 08/30/25 23:05 Review of Systems Review of Systems ROS: Yes All systems reviewed with the patient and are negative except as otherwise documented Exam Vital Signs (past 8 hours): - 08/30/25 21:50 08/30/25 22:00 08/30/25 22:00 Temperature 100.4 F H 100 F H Pulse Rate 95 H Respiratory Rate 21 Blood Pressure 141/63 H Pulse Oximetry 88 L Oxygen Delivery Method Room Air Oxygen Flow Rate 08/30/25 22:15 08/30/25 22:15 08/30/25 22:30 Temperature Pulse Rate 92 H 91 H Respiratory Rate 19 17 Blood Pressure 135/63 Pulse Oximetry 95 96 Oxygen Delivery Method Nasal Cannula Oxygen Flow Rate 2 08/30/25 22:30 08/30/25 22:45 08/30/25 22:45 Temperature Pulse Rate 91 H Respiratory Rate 16 Blood Pressure 125/59 L 127/60 Pulse Oximetry 96 Oxygen Delivery Method Oxygen Flow Rate 08/30/25 22:55 08/30/25 23:00 08/30/25 23:00 Temperature 99.1 F Pulse Rate 88 Respiratory Rate 18 Blood Pressure 120/60 Pulse Oximetry 95 Oxygen Delivery Method Oxygen Flow Rate 08/30/25 23:15 08/30/25 23:15 08/30/25 23:30 Temperature Pulse Rate 86 83 Respiratory Rate 16 15 Blood Pressure 133/64 Pulse Oximetry 97 97 Oxygen Delivery Method Oxygen Flow Rate 08/30/25 23:30 08/30/25 23:45 08/30/25 23:45 Temperature Pulse Rate 82 Respiratory Rate 17 Blood Pressure 130/64 133/67 Pulse Oximetry 98 Oxygen Delivery Method Oxygen Flow Rate 08/31/25 00:00 08/31/25 00:00 08/31/25 00:15 Temperature Pulse Rate 82 87 Respiratory Rate 17 19 Blood Pressure 140/71 Pulse Oximetry 98 97 Oxygen Delivery Method Oxygen Flow Rate 08/31/25 00:15 08/31/25 00:30 08/31/25 00:30 Temperature Pulse Rate 82 Respiratory Rate 17 Blood Pressure 165/79 H 147/76 H Pulse Oximetry 98 Oxygen Delivery Method Room Air Oxygen Flow Rate 08/31/25 01:00 Temperature 97.5 F L Pulse Rate 89 Respiratory Rate 18 Blood Pressure 162/69 H Pulse Oximetry 98 Oxygen Delivery Method Oxygen Flow Rate 2 Oxygen Delivery Method Room Air Oxygen Flow Rate 2 Narrative Exam Narrative: Physical Exam: GENERAL: The patient is not in any acute distressed. Awake and alert. HEENT: Nonicteric sclerae, PERRLA, EOMI. Oropharynx clear. Moist mucous membranes. Conjunctivae appear well perfused. HEART: Regular rate and rhythm without murmurs. No lower extremities edema. LUNGS: Clear to auscultation bilaterally. No wheezing, crackles or rhonchi ABDOMEN: Soft, positive bowel sounds, nontender. SKIN: No rash, no excessive bruising, petechiae, or purpura. NEUROLOGIC: AxO x 3. Cranial nerves II-XII intact without motor/sensory deficit. Objective Labs 08/31/25 04:40 08/31/25 04:40 Labs: Laboratory Results - last 24 hr 08/30/25 08/30/25 08/30/25 20:55 22:50 22:55 WBC 16.1 H RBC 3.76 L Hgb 11.9 L Hct 34.7 L MCV 92.1 MCH 31.7 MCHC 34.4 RDW 14.4 Plt Count 188 Neut % (Auto) 93.5 H Lymph % (Auto) 3.7 L [place] % (Auto) 2.6 L Eos % (Auto) 0.0 L Baso % (Auto) 0.2 Neut # (Auto) 51223 H Lymph # (Auto) 600 L [place] # (Auto) 400 Eos # (Auto) 0 Baso # (Auto) 0 PT 14.1 H INR 1.2 APTT 29 Sodium 128 L Potassium 3.6 Chloride 93 L Carbon Dioxide 22 BUN 26 H Creatinine 0.99 Estimated GFR 57 L BUN/Creatinine Ratio 26.3 H Glucose 129 H Lactate 2.4 H 0.6 L Calcium 9.4 Total Bilirubin 0.6 AST 84 H ALT 53 H Alkaline Phosphatase 79 Total Protein 8.0 Albumin 4.4 Globulin 3.6 Albumin/Globulin Ratio 1.2 Procalcitonin 1.55 H Urine Color Yellow Urine Appearance Cloudy Urine pH 7.5 Ur Specific [place] 1.015 Urine Protein 2+ H Urine Glucose (UA) Negative Urine Ketones Trace H Urine Occult Blood 3+ H Urine Nitrate Positive H Urine Bilirubin Negative Urine Urobilinogen 0.2 Ur Leukocyte Esterase 3+ H Urine RBC 5-10/hpf H Urine WBC 30-100/hpf H Ur Squamous Epith Cells 0-1 /hpf Urine Bacteria Many (>30) H Ur Culture Indicated? Specimen cultured Vol Urine Centrifuged 10ml (spun) 08/31/25 04:40 WBC 20.2 H RBC 3.37 L Hgb 10.7 L Hct 31.3 L MCV 93.0 MCH 31.7 MCHC 34.1 RDW 14.1 Plt Count 179 Neut % (Auto) 88.8 H Lymph % (Auto) 2.5 L [place] % (Auto) 8.6 Eos % (Auto) 0.0 L Baso % (Auto) 0.1 Neut # (Auto) 63749 H Lymph # (Auto) 500 L [place] # (Auto) 1700 H Eos # (Auto) 0 Baso # (Auto) 0 PT INR APTT Sodium 134 L Potassium 3.2 L Chloride 101 Carbon Dioxide 22 BUN 22 H Creatinine 0.87 Estimated GFR > 60 BUN/Creatinine Ratio 25.3 H Glucose 118 H Lactate Calcium 8.0 L Total Bilirubin AST ALT Alkaline Phosphatase Total Protein Albumin Globulin Albumin/Globulin Ratio Procalcitonin Urine Color Urine Appearance Urine pH Ur Specific [place] Urine Protein Urine Glucose (UA) Urine Ketones Urine Occult Blood Urine Nitrate Urine Bilirubin Urine Urobilinogen Ur Leukocyte Esterase Urine RBC Urine WBC Ur Squamous Epith Cells Urine Bacteria Ur Culture Indicated? Vol Urine Centrifuged Assessment & Plan Assessment & Plan narrative: UTI. Patient did receive 1 dose of Zosyn in the ER. Will switch to ceftriaxone for now. Continue IV fluid and follow-up urine culture. Elevated lactic acid. Of note lactic acid was 2.4 but normalized to 0.6 after IV fluid IV antibiotic. Hyponatremia. Mild. Sodium 128. LIkely from dehydration. NS and recheck in AM. Constipation. Bowel regimen. Hypothyroidism. Resume home Synthroid. DVT prophylaxis heparin subcu. CODE STATUS full code. Disposition likely home in 2 days. - As the provider of this telehealth evaluation, requested by the patient's evaluating physician, I attest that I introduced myself to the patient, provided my credentials and determined that telemedicine via a real-time, 2 way interactive audio and video platform is an appropriate and effective means of providing this service. - I reviewed the patient's chart and had a discussion with the member of the patient's treatment team. - The patient and I mutually agreed with continuation of this evaluation via telemedicine. The patient consented for the telemedicine evaluation. - This virtual encounter was taken place from [place] by Dr. Grayson Coates. The patient was evaluated at [facility]. The encounter was approximately 35 minutes. The nurse was present during the entire time of the encounter and was able to assists with exam/stethoscope. Time-Based Coding :: [TOTAL MINUTES] spent with patient and on the chart (including review of chart, obtaining history, exam, reviewing outside data, placing orders, documenting exam and treatment plan, and counseling patient) on [DATE].
[2025-08-31] MEDS: LEVOTHYROXINE 50 MCG TABLET PO (06:12)
--- NOTE | 2025-08-31 07:24 | PM.PN.1 ---
Subjective Subjective Interval history: Summary (night doctor): 80-year-old female with past medical history of hypothyroidism presents with complaint of dysuria. Per the patient's report, the patient presented with a fever and confusion. When the patient arrived to ER, the patient was oriented x 3 and was able to give some history. The patient stated over the last few days the patient has some dysuria. Today the patient had a fever but denies any chills, nausea, vomiting, diarrhea, chest pain or shortness of breath. The patient also denies any cough or congestion. In the emergency room, the patient was hemodynamically stable but did have a fever. Labs shows a WBC of 16 sodium 128 glucose 129 with lactic acid 2.4. The patient was given IV Zosyn and repeat lactate after IV fluid was 0.6. In addition CT abdomen shows severe constipation. Sepsis. Admit the patient to medical telemetry as inpatient. Of note the patient did have UTI as well as leukocytosis and elevated lactic acid. The patient remained hemodynamically stable. Treat underlying infection and monitor hemodynamics. S: She feels very weak. This really began on Friday and then became much worse on Friday. She was had urinary symptoms including dysuria. She was on IV fluids and IV antibiotics. She was with her partner, Chandni. She does have chronic constipation issues but has had a bowel movement recently. O: VSS. NAD, alert and oriented. Fluent speech. Lungs are clear, normal rate and effort. Heart is regular, no murmur gallop or rub. Abdomen is soft, non distended. Extremities are free of edema. ECG: Intervals [place] Rate: 104 P: 62 CT: 182 QRS: 41 QRSD: 86 T: 50 QT: 320 QTc: 420 Interpretive Statements Sinus tachycardia with premature atrial complexes IMAGING: CT abdomen shows severe constipation. A/P: 1. UTI. Patient did receive 1 dose of Zosyn in the ER. 2. Elevated lactic acid. Of note lactic acid was 2.4 but normalized to 0.6 after IV fluid IV antibiotic. 3. Hyponatremia. Mild. Sodium 128. LIkely from dehydration. NS and recheck in AM. 4. Constipation. Bowel regimen. 5. Hypothyroidism. Resume home Synthroid. PLAN: -continue empiric antibiotics (ceftriaxone) and follow urine cultures. -monitor sodium with IV fluids. -trend lactic acid. -physical therapy evaluation and discharge planning. DVT prophylaxis heparin subcu. CODE STATUS full code. Anticipate 2 midnights in the hospital, supports inpatient status. Exam Vital Signs (past 8 hours): - 08/30/25 23:30 08/30/25 23:30 08/30/25 23:45 Temperature Pulse Rate 83 Respiratory Rate 15 Blood Pressure 130/64 133/67 Pulse Oximetry 97 Oxygen Delivery Method Oxygen Flow Rate 08/30/25 23:45 08/31/25 00:00 08/31/25 00:00 Temperature Pulse Rate 82 82 Respiratory Rate 17 17 Blood Pressure 140/71 Pulse Oximetry 98 98 Oxygen Delivery Method Oxygen Flow Rate 08/31/25 00:15 08/31/25 00:15 08/31/25 00:30 Temperature Pulse Rate 87 82 Respiratory Rate 19 17 Blood Pressure 165/79 H Pulse Oximetry 97 98 Oxygen Delivery Method Room Air Oxygen Flow Rate 08/31/25 00:30 08/31/25 01:00 Temperature 97.5 F L Pulse Rate 89 Respiratory Rate 18 Blood Pressure 147/76 H 162/69 H Pulse Oximetry 98 Oxygen Delivery Method Oxygen Flow Rate 2 Oxygen Delivery Method Room Air Oxygen Flow Rate 2 Objective Labs 08/31/25 04:40 08/31/25 04:40 Labs: Laboratory Results - last 24 hr 08/30/25 08/30/25 08/30/25 20:55 22:50 22:55 WBC 16.1 H RBC 3.76 L Hgb 11.9 L Hct 34.7 L MCV 92.1 MCH 31.7 MCHC 34.4 RDW 14.4 Plt Count 188 Neut % (Auto) 93.5 H Lymph % (Auto) 3.7 L [place] % (Auto) 2.6 L Eos % (Auto) 0.0 L Baso % (Auto) 0.2 Neut # (Auto) 28467 H Lymph # (Auto) 600 L [place] # (Auto) 400 Eos # (Auto) 0 Baso # (Auto) 0 PT 14.1 H INR 1.2 APTT 29 Sodium 128 L Potassium 3.6 Chloride 93 L Carbon Dioxide 22 BUN 26 H Creatinine 0.99 Estimated GFR 57 L BUN/Creatinine Ratio 26.3 H Glucose 129 H Lactate 2.4 H 0.6 L Calcium 9.4 Total Bilirubin 0.6 AST 84 H ALT 53 H Alkaline Phosphatase 79 Total Protein 8.0 Albumin 4.4 Globulin 3.6 Albumin/Globulin Ratio 1.2 Procalcitonin 1.55 H Urine Color Yellow Urine Appearance Cloudy Urine pH 7.5 Ur Specific [place] 1.015 Urine Protein 2+ H Urine Glucose (UA) Negative Urine Ketones Trace H Urine Occult Blood 3+ H Urine Nitrate Positive H Urine Bilirubin Negative Urine Urobilinogen 0.2 Ur Leukocyte Esterase 3+ H Urine RBC 5-10/hpf H Urine WBC 30-100/hpf H Ur Squamous Epith Cells 0-1 /hpf Urine Bacteria Many (>30) H Ur Culture Indicated? Specimen cultured Vol Urine Centrifuged 10ml (spun) 08/31/25 04:40 WBC 20.2 H RBC 3.37 L Hgb 10.7 L Hct 31.3 L MCV 93.0 MCH 31.7 MCHC 34.1 RDW 14.1 Plt Count 179 Neut % (Auto) 88.8 H Lymph % (Auto) 2.5 L [place] % (Auto) 8.6 Eos % (Auto) 0.0 L Baso % (Auto) 0.1 Neut # (Auto) 24763 H Lymph # (Auto) 500 L [place] # (Auto) 1700 H Eos # (Auto) 0 Baso # (Auto) 0 PT INR APTT Sodium 134 L Potassium 3.2 L Chloride 101 Carbon Dioxide 22 BUN 22 H Creatinine 0.87 Estimated GFR > 60 BUN/Creatinine Ratio 25.3 H Glucose 118 H Lactate Calcium 8.0 L Total Bilirubin AST ALT Alkaline Phosphatase Total Protein Albumin Globulin Albumin/Globulin Ratio Procalcitonin Urine Color Urine Appearance Urine pH Ur Specific [place] Urine Protein Urine Glucose (UA) Urine Ketones Urine Occult Blood Urine Nitrate Urine Bilirubin Urine Urobilinogen Ur Leukocyte Esterase Urine RBC Urine WBC Ur Squamous Epith Cells Urine Bacteria Ur Culture Indicated? Vol Urine Centrifuged PFSH Social History household members: friend(s) Smoking Status: Former smoker Assessment & Plan Time-Based Coding :: [TOTAL MINUTES] spent with patient and on the chart (including review of chart, obtaining history, exam, reviewing outside data, placing orders, documenting exam and treatment plan, and counseling patient) on [DATE].
[2025-08-31 08:00] VITALS: BP 147/68; PULSE 74; RESP 15; TEMP 36.1; O2SAT 97
[2025-08-31] MEDS: HEPARIN 5,000 UNIT/ML VIAL 5000 UNIT SUBCUT ×2 (08:23→20:43)
--- NOTE | 2025-08-31 11:13 | CM.DANOTE ---
DCP Assessment note pt is a 80yo F admitted with UTI/hyponatremia. here for a day or so of IV abx. 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 pt lives half the year here in [place] and half the year in [place]. lives with her friend Alva after her spouse . had gone to PCP office for PO abx and failed with PO, needed IV abx. no hx of HH/SNF. denies DME. reports feeling better mentally today. denies any special DCP/CM needs at this time. P: anticipates home with friend and OP support. no needs at this time. will continue to follow as needed in case any additional needs should arise BRYCE Villanueva Discharge Planning/Care Management CM Discharge Assessment Start: 08/31/25 01:45 Freq: Status: Active Protocol: Document 08/31/25 11:12 (Rec: 08/31/25 11:13 [email or web address]) Discharge Planning Assessment Assigned Discharge BYRCE Garcia Optimization Manager Provider Yun [employer] [facility] MCR plan DPOA/Assigned tala Calle Designee Name Contact Information [phone] Advance Directives? No History Provided By Patient Prior Living House Arrangements Household Members friend(s) Independent with ADL Yes 's Is patient alert and Yes oriented? Discharge Plan Home Whiteboard Updated Yes in Patient Room with name and ext. # of Cleaning Validation Consultant Review Status In Process Please Provide Date 08/31/25 Initial DC Assessment Was Performed Next Review Type Continued Stay Review
[2025-08-31] MEDS: DOCUSATE 100 MG CAPSULE PO (12:18)
[2025-08-31] MEDS: SENNOSIDES 8.6 MG TABLET PO ×2 (12:19→20:42)
[2025-08-31] MEDS: POTASSIUM CHLORIDE 20 MEQ TAB 40 MEQ PO ×2 (12:19→16:53)
[2025-08-31] MEDS: FLUTICASONE 120 SPRAY/16 GM SPRAY.SUSP NASAL (14:42)
[2025-08-31 15:42] LABS: Acinetobacter calcoa-baumannii Not Detected (Not Detect); Bacteroides fragilis Not Detected (Not Detect); CTX-M Resistance Not Detected (Not Detect); Candida auris Not Detected (Not Detect); Candida glabrata Not Detected (Not Detect); Cryptococcus neoformans/gatti Not Detected (Not Detect); Enterobacterales Detected (Not Detect); Enterococcus faecalis Not Detected (Not Detect); Enterococcus faecium Not Detected (Not Detect); IMP Resistance Not Detected (Not Detect); KPC Resistance Not Detected (Not Detect); Klebsiella aerogenes Not Detected (Not Detect); NDM Resistance Not Detected (Not Detect); OXA-48-like Resistance Not Detected (Not Detect); Proteus species Not Detected (Not Detect); Serratia marcescens Not Detected (Not Detect); Staphylococcus epidermidis Not Detected (Not Detect); Staphylococcus lugdunensis Not Detected (Not Detect); Staphylococcus species Not Detected (Not Detect); Stenotrophomonas maltophilia Not Detected (Not Detect); Streptococcus agalactiae (Gr B Not Detected (Not Detect); Streptococcus pneumonia Not Detected (Not Detect); Streptococcus pyogenes (Gr A) Not Detected (Not Detect); Streptococcus species Not Detected (Not Detect); VIM Resistance Not Detected (Not Detect); mcr-1 Resistance Not Detected (Not Detect)
--- NOTE | 2025-08-31 17:59 | PC.NURSE ---
Patient with + BCX gram - bacilli. MD notified. She was given laxatives today with good result of a large hard BM. Potassium replacement po given. She had decreased appetite she stated for several days. PO intake was fair today. IVF NS at 75ml/hr
[2025-08-31 20:02] VITALS: BP 146/72; PULSE 90; RESP 18; TEMP 37.2; O2SAT 96
[2025-08-31] MEDS: ONDANSETRON 4 MG/2 ML INJ IV (20:52)
[2025-09-01] MEDS: FLUTICASONE 120 SPRAY/16 GM SPRAY.SUSP NASAL ×2 (03:15→14:41)
[2025-09-01] MEDS: SODIUM CHLORIDE 0.9% 1,000 ML 75 ML IV (05:03)
[2025-09-01] MEDS: LEVOTHYROXINE 50 MCG TABLET PO (05:57)
[2025-09-01 08:00] VITALS: BP 155/78; PULSE 78; RESP 22; TEMP 36.7; O2SAT 96
[2025-09-01] MEDS: POTASSIUM CHLORIDE 20 MEQ TAB 40 MEQ PO (08:08)
[2025-09-01] MEDS: cefTRIAXone 2,000 MG in SODIUM CHLORIDE 0.9% 100 ML 200 MG IV (08:08)
[2025-09-01] MEDS: HEPARIN 5,000 UNIT/ML VIAL 5000 UNIT SUBCUT ×2 (08:08→21:03)
[2025-09-01] MEDS: DOCUSATE 100 MG CAPSULE PO (08:08)
[2025-09-01] MEDS: SENNOSIDES 8.6 MG TABLET PO ×2 (08:09→21:03)
--- NOTE | 2025-09-01 12:03 | P.PN_ITS ---
Subjective <Jayde King - Last Filed: 09/01/25 12:04> Subjective Date Patient Seen: 09/01/25 Interval history: CC: Acute UTI HPI:? Per Dr. Coates: 80-year-old female with past medical history of hypothyroidism presents with complaint of dysuria. Per the patient's report, the patient presented with a fever and confusion. When the patient arrived to ER, the patient was oriented x 3 and was able to give some history. The patient stated over the last few days the patient has some dysuria. Today the patient had a fever but denies any chills, nausea, vomiting, diarrhea, chest pain or shortness of breath. The patient also denies any cough or congestion. ? In the emergency room, the patient was hemodynamically stable but did have a fever. Labs shows a WBC of 16 sodium 128 glucose 129 with lactic acid 2.4. The patient was given IV Zosyn and repeat lactate after IV fluid was 0.6. ? In addition CT abdomen shows severe constipation. Sepsis. Admit the patient to medical telemetry as inpatient. Of note the patient did have UTI as well as leukocytosis and elevated lactic acid. The patient remained hemodynamically stable. Treat underlying infection and monitor hemodynamics. ? Interval Events: 08/31 (Dr. Florian): She feels very weak. This really began on Friday and then became much worse on Friday. She was had urinary symptoms including dysuria. She was on IV fluids and IV antibiotics. She was with her partner, Chandni. She does have chronic constipation issues but has had a bowel movement recently. ? 09/01 (Dr. Florian): Patient continues to improve clinically. Reports feeling generally better and stronger today with appetite returning. Remains afebrile. No new complaints. Denies dysuria. Tolerating oral intake. No emesis, diarrhea, or abdominal pain. No new neurological symptoms. She remains on IV ceftriaxone with good tolerance. ? Labs reviewed and notable for: High: WBC (20.2), BUN (22), BUN:Creatinine (25.3), Glucose (118) Low: RBC (3.37), Hgb (10.7), Hct (31.1), Sodium (134), Potassium (3.2), Calcium (8) Blood culture: gram (-) bacilli Urine culture: Mixed gram (+) sridhar?? ? Imaging reviewed and notable for: No new imaging. ? Intake/Output: In 2464, Out 1400, Urine 1.17ml/kg/hr, Stool x1, Emesis x0. Balance +1064 ? Vitals reviewed and notable for: BP: 130-165/64-79, elevated x6 Other vitals WNL ? Physical Exam: GEN: Alert and oriented X4. No acute distress. Well-nourished. Fluent speech. RESP: Unlabored breathing, clear to auscultation bilaterally, no cyanosis appreciated. CV: No peripheral edema, unremarkable heart rate and rhythm. ABD: Soft, non-tender, non-distended, no palpable masses. EXT: No edema, clubbing or cyanosis. SKIN: No rashes or lesions. NEURO: No focal neurologic deficits, CN II-XII grossly intact. PSYCH: Cooperative, appropriate mood and affect. ? A/P: 80-year-old female with past medical history of hypothyroidism, chronic constipation, and hypertension presenting with acute UTI complicated by gram- negative bacteremia, transient confusion, and elevated lactic acid; currently improving on IV antibiotics with down-trending inflammatory markers and stable hemodynamics. ? #UTI / Gram-negative bacteremia Patient did receive 1 dose of Zosyn in the ER. -Continue empiric antibiotics (ceftriaxone) -Urine culture: mixed sridhar, not suitable for sensitivities -Blood cultures: gram-negative bacilli x2, sensitivities pending -Plan to transition from IV to PO antibiotics pending sensitivities ? #Sepsis (resolved) Initial elevated lactic acid (2.4), now normalized to 0.6 with fluids and antibiotics. Procalcitonin 1.55 suggests bacterial etiology -Patient remained hemodynamically stable throughout -No current signs of systemic inflammatory response ? #Hypertension Elevated blood pressures 130-165/64-79. Likely reactive or secondary to acute illness or baseline variation -Continue to monitor, no need for new antihypertensives ? #Hyponatremia Mild. Sodium 128 increased to 134 with NS. Likely from dehydration. -NS -Recheck in AM ? #Constipation -History of chronic constipation -Bowel movement occurred, continue bowel regimen ? #Hypothyroidism -Continue home levothyroxine ? DVT Prophylaxis: -Heparin sq -SCDs ? Code Status: -Full Code ? Disposition: -Discharge planning to begin upon clinical clearance, likely one more day <Rolf Florian MD - Last Filed: 11/13/25 14:30> Subjective Interval history: CC: Acute UTI HPI:? Per Dr. Coates: 80-year-old female with past medical history of hypothyroidism presents with complaint of dysuria. Per the patient's report, the patient presented with a fever and confusion. When the patient arrived to ER, the patient was oriented x 3 and was able to give some history. The patient stated over the last few days the patient has some dysuria. Today the patient had a fever but denies any chills, nausea, vomiting, diarrhea, chest pain or shortness of breath. The patient also denies any cough or congestion. ? In the emergency room, the patient was hemodynamically stable but did have a fever. Labs shows a WBC of 16 sodium 128 glucose 129 with lactic acid 2.4. The patient was given IV Zosyn and repeat lactate after IV fluid was 0.6. ? In addition CT abdomen shows severe constipation. Sepsis. Admit the patient to medical telemetry as inpatient. Of note the patient did have UTI as well as leukocytosis and elevated lactic acid. The patient remained hemodynamically stable. Treat underlying infection and monitor hemodynamics. ? Interval Events: 08/31 (Dr. Florian): She feels very weak. This really began on Friday and then became much worse on Friday. She was had urinary symptoms including dysuria. She was on IV fluids and IV antibiotics. She was with her partner, Chandni. She does have chronic constipation issues but has had a bowel movement recently. ? 09/01 (Dr. Florian): Patient continues to improve clinically. Reports feeling generally better and stronger today with appetite returning. Remains afebrile. No new complaints. Denies dysuria. Tolerating oral intake. No emesis, diarrhea, or abdominal pain. No new neurological symptoms. She remains on IV ceftriaxone (2G) with good tolerance. ? Labs reviewed and notable for: High: WBC (20.2), BUN (22), BUN:Creatinine (25.3), Glucose (118) Low: RBC (3.37), Hgb (10.7), Hct (31.1), Sodium (134), Potassium (3.2), Calcium (8) Blood culture: gram (-) bacilli Urine culture: Mixed gram (+) sridhar?? ? Imaging reviewed and notable for: No new imaging. ? Intake/Output: In 2464, Out 1400, Urine 1.17ml/kg/hr, Stool x1, Emesis x0. Balance +1064 ? Vitals reviewed and notable for: BP: 130-165/64-79, elevated x6 Other vitals WNL ? Physical Exam: GEN: Alert and oriented X4. No acute distress. Well-nourished. Fluent speech. RESP: Unlabored breathing, clear to auscultation bilaterally, no cyanosis appreciated. CV: No peripheral edema, unremarkable heart rate and rhythm. ABD: Soft, non-tender, non-distended, no palpable masses. EXT: No edema, clubbing or cyanosis. SKIN: No rashes or lesions. NEURO: No focal neurologic deficits, CN II-XII grossly intact. PSYCH: Cooperative, appropriate mood and affect. ? A/P: 80-year-old female with past medical history of hypothyroidism, chronic constipation, and hypertension presenting with acute UTI complicated by gram- negative bacteremia, transient confusion, and elevated lactic acid; currently improving on IV antibiotics with down-trending inflammatory markers and stable hemodynamics. ? #UTI / Gram-negative bacteremia Patient did receive 1 dose of Zosyn in the ER. -Continue empiric antibiotics (ceftriaxone) -Urine culture: mixed sridhar, not suitable for sensitivities -Blood cultures: gram-negative bacilli x2, sensitivities pending -Plan to transition from IV to PO antibiotics pending sensitivities ? #Sepsis (resolved) Initial elevated lactic acid (2.4), now normalized to 0.6 with fluids and antibiotics. Procalcitonin 1.55 suggests bacterial etiology -Patient remained hemodynamically stable throughout -No current signs of systemic inflammatory response ? #Hypertension Elevated blood pressures 130-165/64-79. Likely reactive or secondary to acute illness or baseline variation -Continue to monitor, no need for new antihypertensives ? #Hyponatremia Mild. Sodium 128 increased to 134 with NS. Likely from dehydration. -NS -Recheck in AM ? #Constipation -History of chronic constipation -Bowel movement occurred, continue bowel regimen ? #Hypothyroidism -Continue home levothyroxine ? DVT Prophylaxis: -Heparin sq -SCDs ? Code Status: -Full Code ? Disposition: -Discharge planning to begin upon clinical clearance, likely one more day Agree with all of the above. (AJ) Exam <Jayde King - Last Filed: 09/01/25 12:04> Vital Signs (past 8 hours): - 09/01/25 08:00 Temperature 98.1 F Pulse Rate 78 Respiratory Rate 22 Blood Pressure 155/78 H Pulse Oximetry 96 Oxygen Flow Rate 0 Oxygen Delivery Method Room Air Oxygen Flow Rate 0 Objective < Filed: 09/01/25 12:04> Labs 08/31/25 04:40 08/31/25 04:40 Labs: Laboratory Results - last 24 hr 08/30/25 21:05 A.calcoaceticus-baumannii cmplx PCR Not detected Bacteroides fragilis Not detected Elle albicans (PCR) Not detected Elle auris (PCR) Not detected C. glabrata (PCR) Not detected C. krusei (PCR) Not detected C. parapsilosis (PCR) Not detected C. tropicalis (PCR) Not detected C. neoform/gattii (PCR) Not detected Enterobacterales (PCR) Detected E. cloacae complex PCR Not detected Enterococc faecalis PCR Not detected Enterococc faecium PCR Not detected E. coli (PCR) Detected H. influenzae (PCR) Not detected Klebsiella aerogenes (PCR) Not detected Klebsiella oxytoca PCR Not detected Klebsiella pneumoniae Not detected List. monocytogenes PCR Not detected N. meningitidis (PCR) Not detected Proteus species (PCR) Not detected Salmonella spp. (PCR) Not detected Serratia marcescens PCR Not detected Staphylococcus sp PCR Not detected Staph aureus (PCR) Not detected mecA/C & MREJ Resist Gene Not applicable mecA/C-Methicil Resis Gene Not applicable mcr-1 Colistin Res Gene PCR Not detected Staph epidermidis (PCR) Not detected Staph lugdunensis PCR Not detected S. maltophilia (PCR) Not detected Streptococcus sp PCR Not detected Group A Strep (PCR) Not detected Strep agalactiae (PCR) Not detected Strep pneumoniae (PCR) Not detected P. aeruginosa (PCR) Not detected Lang/B-Vanco Res Genes Not applicable blaIMP Car res Gene PCR Not detected KPC-Carbap Res Gene PCR Not detected blaNDM Car Res Gene PCR Not detected OXA-48 Carbapenem Resis Gene (PCR) Not detected blaVIM Car Res Gene PCR Not detected CTX-M Gene Resistance (PCR) Not detected PFSH < Filed: 09/01/25 12:04> Social History household members: friend(s) Smoking Status: Former smoker Assessment & Plan < Filed: 09/01/25 12:04> Time-Based Coding :: [TOTAL MINUTES] spent with patient and on the chart (including review of chart, obtaining history, exam, reviewing outside data, placing orders, documenting exam and treatment plan, and counseling patient) on [DATE].
--- NOTE | 2025-09-01 14:35 | OT.IP.EVAL ---
Current Diagnoses Urinary tract infection, site not specified (08/31/25) Occupational Therapy Inpatient Evaluation/Re-Eval M1 OT IP Prior Functional Status Start: 09/01/25 14:37 Freq: Status: Active Protocol: Document 09/01/25 14:00 [facility] (Rec: 09/01/25 15:26 [facility] Desktop) Medical Review Prior Functional Status Communication I Mobility and Gait Pt states Independent without a device. Activities of Daily Completely independent with all ADL, IADL,and drives. Living and IADL's Prior Functional Pt lives with her friend. Level (Other details ) Social History Household Members friend(s) Living Arrangements House Number of Floors ( Two Floors Floors) Number of Stairs To 1 step to enter the house and 16 steps with bilateral Enter/Railing? rails to get to the daylight basement. Home Environment High Toilet,Walk in Shower,Tub/Shower Home Equipment Front Wheel Walker,Four Wheel Walker,Shower Seat with Backrest,Hand Held Shower,Grab Bars Near Toilet,Grab Bars In Shower M2 OT-IP Current Condition Start: 09/01/25 14:37 Freq: Status: Active Protocol: Document 09/01/25 14:00 [facility] (Rec: 09/01/25 15:26 [facility] Desktop) Occupational Therapy Current Condition Current Condition Evaluation Date 09/01/25 Treatment Diagnosis UTI M3 OT- IP Subjective and Pain Start: 09/01/25 14:37 Freq: Status: Active Protocol: Document 09/01/25 14:00 [facility] (Rec: 09/01/25 15:26 [facility] Desktop) OT- Subjective Occupational Therapy Visit Type Type Initial Evaluation Visit Start Time 14:00 Visit Stop Time 14:35 Occupational Therapy Visit Comments Patient Comments Pt up at the sink with FWW doing her water flossing. Patient/Caregiver TO go home. Goals OT Pain Assessment Pain When Pain Assessed At Rest Pain Present Pain Present Denied Pain M4 OT- IP ADL's Start: 09/01/25 14:37 Freq: Status: Active Protocol: Document 09/01/25 14:00 [facility] (Rec: 09/01/25 15:26 [facility] Desktop) OT IQH-Boju-Gophzda Comments OT Self-Feeding Not at meal time. Comments OT ADL-Grooming General Evaluation Grooming Ability Independent OT ADL-Oral Care General Eval Oral Care Ability Independent OT ADL-Dressing General Eval Lower Body Dressing Standby Assistance Ability Comments OT Dressing Comments Right sock slightly increased time compared to left side. OT ADL-Toileting Comments OT Toileting Pt use of purewick. Pt states at home has to get up 4 Comments times at night. Pt states has a toilet safety frame that they can install if needed. Pt states does not want to have a BSC next to the bed and rather get up to use the toilet. OT ADL-Bathing Comments OT Bathing Comments Pt may benefit from supervision initially until able to increase her overall endurance. M5 OT- IP IADL's Start: 09/01/25 14:37 Freq: Status: Active Protocol: Document 09/01/25 14:00 [facility] (Rec: 09/01/25 15:26 [facility] Desktop) OT-Instrumental Activities of Daily Living Home Safety Awareness Awareness of Need Good Awareness for Assistance at Home Ability to Problem Able to Problem Solve Solve Emergency Situations Medication Management Medication No Deficits Identified Management Money Management Money Management No Deficits Identified Meal Preparation Meal Preparation Pt may benefit from assist. Comments School Lunch Monitor School Lunch Monitor Pt may benefit from help initially. Comments M6 OT- IP Functional Cognition Start: 09/01/25 14:37 Freq: Status: Active Protocol: Document 09/01/25 14:00 [facility] (Rec: 09/01/25 15:26 [facility] Desktop) Cognitive Factors Limiting Selfcare Function Cognitive Ability Level of Alertness Alert Patient Orientation Name,Age,Birthday,Month,Date,Year,Day of Week,Place, Situation Attention Span Capable of Focused Attention,Capable of Sustained Ability Attention Ability to Follow Able to Follow One Step Commands Commands Cognitive Comments Cognitive Assessment Pt able to follow commands for ADL and mobility needs. Comments Pt able to answer all home safety situation accurately. OT- Vision and Hearing OT- Vision Assessment Visual Acuity Glasses All The Time Visual Attentiveness WFL Occular Pursuits WFL M7 OT- IP Mobility and Balance Start: 09/01/25 14:37 Freq: Status: Active Protocol: Document 09/01/25 14:00 [facility] (Rec: 09/01/25 15:26 [facility] Desktop) OT- Bed Mobility Assessment Supine to Sit Supine to Sit Assist Standby Assistance Sit to Supine Sit to Supine Assist Standby Assistance OT-Transfer Assessment Sit to and From Stand Sit to and from Standby Assistance Stand Transfers Transfer Ability Standby Assistance Technique Transfer Destination Bed,Chair Transfer Technique Stand Step Pivot Devices Transfer Assistive Gait Belt,Front Wheeled Walker Devices Comments Mobility Comments SBA with FWW to get back from the sink to bed. Pt has very flexed postured while up on her feet. OT- Balance Assessment Sitting Balance and Reactions Static Sitting Normal Balance Ability Dynamic Sitting Good Balance Ability Standing Balance and Reactions Static Standing Good Balance Ability Dynamic Standing Fair Balance Ability M8 OT- IP Objective Assessments Start: 09/01/25 14:37 Freq: Status: Active Protocol: Document 09/01/25 14:00 [facility] (Rec: 09/01/25 15:26 [facility] Desktop) OT Gross Range of Motion Upper Extremity Range of Motion ROM Impairments Grossly WFL OT Strength Comments Strength Comments WFL M9 OT- IP Assessment and Plan Start: 09/01/25 14:37 Freq: Status: Active Protocol: Document 09/01/25 14:00 [facility] (Rec: 09/01/25 15:26 [facility] Desktop) OT Summary Assessment and Plan Potential Rehabilitation Good Potential Analytic Complexity Moderate at Evaluation Summary OT Impairments Balance,Functional Mobility,Bathing,Shower Transfers, Activity Tolerance Progress Towards Progressing Toward Goals Goals Assessment Summary Pt MOD complexity and main barriers are decreased activity tolerance, step, and now using a FWW for mobility. Pt to go home with assist and may benefit from home health. Goals Dressing Goal Independent Toileting Goal Independent Bathing Goal Independent Toilet Transfer Goal Independent Shower Transfer Goal Independent Days to Meet Goals 7 Frequency of Treatment Other frequency 5x/week Treatment Plan OT Treatment Plan ADL Training,Functional Mobility,Patient/Family Education,Discharge Planning Discharge Recommendations OT Discharge Home with Assistance,Home Health Recommendations Transportation Needs Private Vehicle at Discharge
--- NOTE | 2025-09-01 15:41 | CM.DPC ---
DCP Cont: Per MD, adjusted pt's IV abx for better coverage and improvement and to work with PT/OT today to determine any further d/c needs. Per OT, pt was SBA with FWW but this is below her baseline and could benefit from home with assist from her friend and maybe HH. PT ordered and pending. SW met bedside with pt and explained role and pt confirms she is feeling better today than yesterday and typically does not use DME for ambulation at baseline but her and her friend have multiple walkers and DME at home if needed. Pt states she has used HH in the past and currently does not think it will be needed at d/c and states she and her friend have been through many different ordeals in the past and know how to support each other. Pt states they are not planning to go back to [place] until mid October. Just then PT arrived for eval and updated that pt thinking HH may not be needed and PT will help determine any further needs and discuss with pt as well. Plan: SW to follow up with pt tomorrow to confirm HH not needed at d/c and friend plans to provide transport at d/c. BRYCE Zhou
--- NOTE | 2025-09-01 17:10 | PT-IP ANOTE ---
Pt history gotten, but pt refused 2x this PM when asked to get up. encouraged pt on importance but pt notes got up with OT and just feels too cold and worried if she gets up, she won't be able to get warm again. Check on pt tomorrow
[2025-09-01 19:00] VITALS: BP 157/78; PULSE 84; RESP 18; TEMP 36.9; O2SAT 95
[2025-09-01 20:00] VITALS: BP 157/78; PULSE 81; RESP 16; TEMP 36.9; O2SAT 96
[2025-09-02] MEDS: FLUTICASONE 120 SPRAY/16 GM SPRAY.SUSP NASAL (03:15)
[2025-09-02] MEDS: LEVOTHYROXINE 50 MCG TABLET PO (06:00)
[2025-09-02 08:20] LABS: Hematocrit 32.0 % (36-46); Hemoglobin 10.9 g/dL (12.0-16.0); Mean Corpuscular HGB Conc 34.0 % (30-36); Mean Corpuscular Hemoglobin 31.4 PG (26-34); Mean Corpuscular Volume 92.4 fL (80-100); Platelet Count 227 X10^3/uL (150-400)
[2025-09-02 08:40] LABS: Blood Urea Nitrogen 12 mg/dL (7-17); Calcium 8.4 mg/dL (8.4-10.2); Carbon Dioxide 21 mmol/L (22-32); Chloride 104 mmol/L (98-107); Estimated Glomerular Filt Rate > 60 mL/min (>60); Glucose 98 mg/dL (70-99); HEMOLYSIS < 15 (0-50); Potassium 4.2 mmol/L (3.4-5.1); Sodium 134 mmol/L (137-145)
[2025-09-02] MEDS: DOCUSATE 100 MG CAPSULE PO (08:50)
[2025-09-02] MEDS: SENNOSIDES 8.6 MG TABLET PO (08:50)
[2025-09-02] MEDS: HEPARIN 5,000 UNIT/ML VIAL 5000 UNIT SUBCUT (08:50)
[2025-09-02 09:00] VITALS: BP 180/74; PULSE 78; RESP 14; TEMP 36.3; O2SAT 97
--- NOTE | 2025-09-02 09:27 | P.DS_ITS ---
History of Present Illness <Jayde King - Last Filed: 09/02/25 09:29> History of Present Illness Chief complaint: Altered, known infection Narrative: CC: Acute UTI HPI:? Per Dr. Coates: 80-year-old female with past medical history of hypothyroidism presents with complaint of dysuria. Per the patient's report, the patient presented with a fever and confusion. When the patient arrived to ER, the patient was oriented x 3 and was able to give some history. The patient stated over the last few days the patient has some dysuria. Today the patient had a fever but denies any chills, nausea, vomiting, diarrhea, chest pain or shortness of breath. The patient also denies any cough or congestion. ? In the emergency room, the patient was hemodynamically stable but did have a fever. Labs shows a WBC of 16 sodium 128 glucose 129 with lactic acid 2.4. The patient was given IV Zosyn and repeat lactate after IV fluid was 0.6. ? In addition CT abdomen shows severe constipation. Sepsis. Admit the patient to medical telemetry as inpatient. Of note the patient did have UTI as well as leukocytosis and elevated lactic acid. The patient remained hemodynamically stable. Treat underlying infection and monitor hemodynamics. ? Interval Events: 08/31 (Dr. Florian): She feels very weak. This really began on Friday and then became much worse on Friday. She was had urinary symptoms including dysuria. She was on IV fluids and IV antibiotics. She was with her partner, Chandni. She does have chronic constipation issues but has had a bowel movement recently. ? 09/01 (Dr. Florian): Patient continues to improve clinically. Reports feeling generally better and stronger today with appetite returning. Remains afebrile. No new complaints. Denies dysuria. Tolerating oral intake. No emesis, diarrhea, or abdominal pain. No new neurological symptoms. She remains on IV ceftriaxone with good tolerance. ? 09/02 (Dr. Florian): Feeling okay today. Sad to be in the hospital. No new symptoms. Appetite still not returned to baseline. Excited for a shower and then discharge today. ? Labs reviewed and notable for: CBC: high WBC (12.2), low RBC (3.47, low hgb (10.9), low Hct (32), otherwise WNL BMP: low sodium (134), low CO2 (21), otherwise WNL Blood culture: E. coli Urine culture: Mixed gram (+) sridhar?? ? Imaging reviewed and notable for: No new imaging. ? Intake/Output: In 1116, Out 2300, Urine 1.92ml/kg/hr, Stool x1, Emesis x0. Balance -1184 ? Vitals reviewed and notable for: BP: 155-180/78-120, elevated x3 Other vitals WNL ? Physical Exam: GEN: Alert and oriented X4. No acute distress. Well-nourished. Fluent speech. RESP: Unlabored breathing, clear to auscultation bilaterally, no cyanosis appreciated. CV: No peripheral edema, unremarkable heart rate and rhythm. ABD: Soft, non-tender, non-distended, no palpable masses. EXT: No edema, clubbing or cyanosis. SKIN: No rashes or lesions. NEURO: No focal neurologic deficits, CN II-XII grossly intact. PSYCH: Cooperative, appropriate mood and affect. ? A/P: 80-year-old female with past medical history of hypothyroidism, chronic constipation, and hypertension presenting with acute UTI complicated by gram- negative bacteremia, transient confusion, and elevated lactic acid; currently improving on IV antibiotics with down-trending inflammatory markers and stable hemodynamics. ? #UTI / Gram-negative bacteremia Patient did receive 1 dose of Zosyn in the ER. -Continue empiric antibiotics (ceftriaxone) -Urine culture: mixed sridhar, not suitable for sensitivities -Blood cultures: E.coli -Stop IV ceftriaxone after AM dose today -Start PO ciprofloxacin 500mg x 11 days ? #Sepsis (resolved) Initial elevated lactic acid (2.4), now normalized to 0.6 with fluids and antibiotics. Procalcitonin 1.55 suggests bacterial etiology -Patient remained hemodynamically stable throughout -No current signs of systemic inflammatory response ? #Hypertension Elevated blood pressures 155-180/78-120. 2 days of elevated blood pressures with higher readings today than yesterday. -Start PO lisinopril 2.5 mg daily -Follow up with primary care in 1 week for BP recheck ? #Hyponatremia Mild. Sodium 128 increased to 134 with NS. Likely from dehydration. -NS -Recheck in AM ? #Constipation -History of chronic constipation -Bowel movement occurred, continue bowel regimen ? #Hypothyroidism -Continue home levothyroxine ? DVT Prophylaxis: -Heparin sq -SCDs ? Code Status: -Full Code ? Disposition: -Discharge home today with oral cipro 500mg x 10 days and oral lisinopril 2.5mg. Follow-up with primary care in 1 week. <Rolf Florian MD - Last Filed: 09/02/25 12:42> History of Present Illness Narrative: CC: Acute UTI HPI:? Per Dr. Coates: 80-year-old female with past medical history of hypothyroidism presents with complaint of dysuria. Per the patient's report, the patient presented with a fever and confusion. When the patient arrived to ER, the patient was oriented x 3 and was able to give some history. The patient stated over the last few days the patient has some dysuria. Today the patient had a fever but denies any chills, nausea, vomiting, diarrhea, chest pain or shortness of breath. The patient also denies any cough or congestion. ? In the emergency room, the patient was hemodynamically stable but did have a fever. Labs shows a WBC of 16 sodium 128 glucose 129 with lactic acid 2.4. The patient was given IV Zosyn and repeat lactate after IV fluid was 0.6. ? In addition CT abdomen shows severe constipation. Sepsis. Admit the patient to medical telemetry as inpatient. Of note the patient did have UTI as well as leukocytosis and elevated lactic acid. The patient remained hemodynamically stable. Treat underlying infection and monitor hemodynamics. ? Hospital course: : 08/31 (Dr. Florian): She feels very weak. This really began on Friday and then became much worse on Friday. She was had urinary symptoms including dysuria. She was on IV fluids and IV antibiotics. She was with her partner, Chandni. She does have chronic constipation issues but has had a bowel movement recently. ? 09/01 (Dr. Florian): Patient continues to improve clinically. Reports feeling generally better and stronger today with appetite returning. Remains afebrile. No new complaints. Denies dysuria. Tolerating oral intake. No emesis, diarrhea, or abdominal pain. No new neurological symptoms. She remains on IV ceftriaxone with good tolerance. ? 09/02 (Dr. Florian): Feeling okay today. Sad to be in the hospital. No new symptoms. Appetite still not returned to baseline. Excited for a shower and then discharge today. ? Imaging reviewed and notable for: CTAP: CHEST: Lower Neck: No enlarged lymph nodes. Thyroid: No thyroid nodules which require sonographic follow up, per consensus guidelines. Axillae: No enlarged lymph nodes. Chest Wall: Unremarkable. Bones: Visualized osseous structures appear intact without acute fracture or focal destructive lesion. No acute compression fractures of the imaged spine. Lungs and Pleura: No pneumothorax or pleural effusions. No consolidation or suspicious nodules. Visualized airways appear patent. No septal thickening or nodularity. Heart: Heart size is normal. No pericardial effusion. Thoracic Vessels: The aorta and pulmonary arteries demonstrate normal size. Mediastinum and Daily: No enlarged lymph nodes. Esophagus: No wall thickening. No hiatal hernia. ABDOMEN: Liver: No solid mass. Gallbladder: Gallbladder distension. No evidence for wall thickening or radiodense gallstone. Biliary ducts: No biliary dilation. Pancreas: No ductal dilation. Spleen: Size is within normal limits. Adrenal Glands: No adrenal nodules. Kidneys and Ureters: No hydronephrosis. Small extrarenal pelvis on the right. No solid mass. No complex renal cystic lesion which requires follow up. Stomach and Bowel: Colonic diverticulosis without evidence for acute diverticulitis. Large amount of fecal material seen throughout the colon and rectum. There is mild rectal distension. No significant rectal wall thickening or inflammation. There is also suggestion of mild circumferential wall thickening of the proximal ascending colon and distal /terminal ileum with associated fecalization of distal small bowel. No evidence for small bowel obstruction proximally. Peritoneum: No abnormal intraperitoneal fluid. No free air. Ventral Wall: No hernia. Abdominal Nodes: No retroperitoneal or mesenteric adenopathy by size criteria. Vessels: Aorta and inferior vena cava are normal in size. Dense atherosclerotic calcifications. PELVIS: Pelvic Organs: Unremarkable. A pessary ring is noted. Bladder: Moderate urinary bladder distention. No wall thickening. Pelvic Nodes: No enlarged lymph nodes. Miscellaneous: No inguinal hernias are seen. Bones: No aggressive osseous abnormality. No acute vertebral body compression fractures. Multilevel spondylitic changes throughout the imaged spine. No suspicious osseous lesions. Status post left total hip arthroplasty. Moderate beam hardening/streak artifact from surgical hardware obscures visualization of the adjacent structures of the lower pelvis. IMPRESSION: 1. Large fecal burden seen throughout the colon but most pronounced in the rectum and distal left colon. Findings are consistent with constipation. Additionally, mild circumferential wall thickening of the proximal ascending colon and distal small bowel with associated fecalization. Mild enterocolitis may have a similar appearance. 2. Mildly distended gallbladder without wall thickening or radiodense gallstone. This is favored to represent fasting state. However, recommend clinical correlation for right upper quadrant pain. 3. Colonic diverticulosis without acute diverticulitis. 4. Other chronic/non-acute findings as above. ? Intake/Output: In 1116, Out 2300, Urine 1.92ml/kg/hr, Stool x1, Emesis x0. Balance -1184 ? Vitals reviewed and notable for: BP: 155-180/78-120, elevated x3 Other vitals WNL ? Physical Exam: GEN: Alert and oriented X4. No acute distress. Well-nourished. Fluent speech. RESP: Unlabored breathing, clear to auscultation bilaterally, no cyanosis appreciated. CV: No peripheral edema, unremarkable heart rate and rhythm. ABD: Soft, non-tender, non-distended, no palpable masses. EXT: No edema, clubbing or cyanosis. SKIN: No rashes or lesions. NEURO: No focal neurologic deficits, CN II-XII grossly intact. PSYCH: Cooperative, appropriate mood and affect. (agree, AJ) ? A/P: 80-year-old female with past medical history of hypothyroidism, chronic constipation, and hypertension presenting with acute UTI complicated by gram- negative bacteremia, transient confusion, and elevated lactic acid; currently improving on IV antibiotics with down-trending inflammatory markers and stable hemodynamics. ? #UTI / Gram-negative bacteremia Patient did receive 1 dose of Zosyn in the ER. -Continue empiric antibiotics (ceftriaxone) -Urine culture: mixed sridhar, not suitable for sensitivities -Blood cultures: E.coli -Stop IV ceftriaxone after AM dose today -Start PO ciprofloxacin 500mg x 11 days ? #Sepsis (resolved) Initial elevated lactic acid (2.4), now normalized to 0.6 with fluids and antibiotics. Procalcitonin 1.55 suggests bacterial etiology -Patient remained hemodynamically stable throughout -No current signs of systemic inflammatory response ? #Hypertension Elevated blood pressures 155-180/78-120. 2 days of elevated blood pressures with higher readings today than yesterday. -Start PO lisinopril 2.5 mg daily -Follow up with primary care in 1 week for BP recheck ? #Hyponatremia Mild. Sodium 128 increased to 134 with NS. Likely from dehydration. -NS -Recheck in AM ? #Constipation -History of chronic constipation -Bowel movement occurred, continue bowel regimen ? #Hypothyroidism -Continue home levothyroxine ? Code Status: -Full Code Additional information: She will discharge on oral antibiotics to complete 14 days of therapy. Close follow up with PCP next week. Initiation of low-dose lisinopril for persistent hypertension with recheck and reassessment by PCP. [N], the patient has documentation of a left ventricle ejection fracture less than or equal to 40%, or moderately or severely reduced left ventricle systolic function. [N], the patient has a history of heart transplant or left ventricular assist device (LVAD). [N], the patient was prescribed an TOMASA inhibitor at discharge or is already being taken. The patient was not prescribed an TOMASA-inhibitor because of the following exception: NA. [N], the patient was prescribed Metoprolol succinate, bisoprolol, or carvedilol at discharge. The patient was not prescribed Metoprolol succinate, bisoprolol, or carvedilol at discharge because of the following exception: NA. Discharge Providers <Jayde King - Last Filed: 09/02/25 09:29> Provider Date of admission: 08/31/25 00:06 Primary care physician: Yun Lin MD Consults: 08/31/25 10:53 Consult to Pharmacy Routine Comment: high fall risk 08/31/25 18:43 Consult to Occupational Therapy Evaluate & Treat Comment: Physician Instructions: Evaluate and treat Consult to Physical Therapy Evaluate & Treat Comment: Physician Instructions: Evaluate and Treat Discharge provider: Jayde King <Rolf Florian MD - Last Filed: 09/02/25 12:42> Provider Discharge Date: 09/02/25 Summary <Rolf Florian MD - Last Filed: 09/02/25 12:42> Status at Discharge Cognitive/behavioral status at discharge: oriented Functional status at discharge: independent ambulation Overall status at discharge: patient is back to baseline Time Spent with Patient Time spent: Greater than 30 minutes Exam <Jayde King - Last Filed: 09/02/25 09:29> Vital Signs (past 8 hours): Oxygen Delivery Method Room Air Oxygen Flow Rate 0 Objective <Jayde King - Last Filed: 09/02/25 09:29> Labs 09/02/25 08:08 09/02/25 08:08 Labs: Laboratory Results - last 24 hr 09/02/25 08:08 WBC 12.2 H RBC 3.47 L Hgb 10.9 L Hct 32.0 L MCV 92.4 MCH 31.4 MCHC 34.0 RDW 14.5 Plt Count 227 Sodium 134 L Potassium 4.2 Chloride 104 Carbon Dioxide 21 L BUN 12 Creatinine 0.70 Estimated GFR > 60 BUN/Creatinine Ratio 17.1 Glucose 98 Calcium 8.4 PFSH <Jayde King - Last Filed: 09/02/25 09:29> Social History household members: friend(s) Smoking Status: Former smoker Discharge Plan Discharge Plan Patient Disposition: Home Provider Discharge Comment: Stable for discharge home, completing a 14 day course of antibiotics with oral quinolones. We will have close PCP follow up for remeasurement of high blood pressure. Discharge orders & Medications Prescriptions: New ciprofloxacin HCl [Cipro] 500 mg tablet 500 mg PO BID Qty: 9 0RF lisinopril 2.5 mg tablet 2.5 mg PO DAILY Qty: 30 0RF Continued fluticasone propionate [Flonase Allergy Relief] 50 mcg/actuation spray,suspension 1 spray intranasal Q12H Qty: 16 0RF Rx Instructions: administer into each nostril levothyroxine 50 mcg tablet 50 mcg PO DAILY Follow up/Referrals: Yun Lin MD [Primary Care Provider, Internal Medicine] Diet/Activity/Treatments Diet: Regular Activity: As tolerated. Skin/Wound/Dressing Care Report to your healthcare provider any signs of infection, such as:: chills, fever and night sweats Visit Report/Discharge Packet Instructions: DI for Kidney Infection, DI for Bacteremia-Adult Stand Alone Forms: Patient Portal/API Discharge Data Primary Care Provider: Yun Lin
--- NOTE | 2025-09-02 09:45 | PT.IIE ---
Current Diagnoses Urinary tract infection, site not specified (08/31/25) Physical Therapy Inpatient Evaluation/Re-Eval M1 PT IP Prior Functional Status Start: 09/01/25 15:38 Freq: NEEDED Status: Active Protocol: Document 09/02/25 09:45 DLM (Rec: 09/02/25 11:01 DLM Desktop) Medical Review Prior Functional Status Medical History Yes Reviewed Diet/Fluid Regular Consistency Communication WFL Mobility and Gait Pt states Independent without a device. does 10k steps a day. She is very active. Activities of Daily Completely independent with all ADL, IADL,and drives. Living and IADL's Prior Functional Pt lives with her friend. Does have a stationary bike Level (Other details and a rower ) Social History Household Members friend(s) Living Arrangements House Number of Floors ( Two Floors Floors) Number of Stairs To 1 step to enter the house and 16 steps with bilateral Enter/Railing? rails to get to the daylight basement. Doesn't need to use basement and can drive around to it if wanted to go down there. Home Environment High Toilet,Walk in Shower,Tub/Shower Home Equipment Front Wheel Walker,Four Wheel Walker,Shower Seat with Backrest,Hand Held Shower,Grab Bars Near Toilet,Grab Bars In Shower Employment Status Retired M2 PT-IP Current Condition Start: 09/01/25 15:38 Freq: NEEDED Status: Active Protocol: Document 09/02/25 09:45 DLM (Rec: 09/02/25 11:01 DLM Desktop) Physical Therapy Current Condition Current Condition Evaluation Date 09/02/25 Treatment Diagnosis Septic UTI, impaired gait Onset Date 08/31/25 M3 PT-IP Subjective Start: 09/01/25 15:38 Freq: NEEDED Status: Active Protocol: Document 09/02/25 09:45 DLM (Rec: 09/02/25 11:01 DLM Desktop) Subjective Physical Therapy Visit Type Type Initial Evaluation Visit Start Time 09:10 Visit Stop Time 09:45 Notes 35 min Number of INSURANCE CLAIM APPROVER Visits 0 Physical Therapy Visit Comments Patient Comments She reports feeling better today. She reports frequent need to urinate continues. Patient Goals She wants to go home Therapy Pain Assessment Pain When Pain Assessed During Mobility Pain Present Pain Present Denied Pain M4 PT-IP Mobility and Gait Start: 09/01/25 15:38 Freq: NEEDED Status: Active Protocol: Document 09/02/25 09:45 DLM (Rec: 09/02/25 11:01 DLM Desktop) PT-Bed Mobility Assessment Rolling Level of Assist Independent Supine to Sit Supine to Sit Independent Sit to Supine Sit to Supine Independent Scooting Scooting to Edge of Independent Bed Scooting Up and Down Independent in Bed PT-Transfer Assessment Sit to and From Stand Sit to and from Independent Stand Equipment Transfer Assistive Gait Belt,Front Wheeled Walker Device Transfers Transfer Destination Bed Transfer Technique Stand Step Pivot Transfer Ability Level of Assist Standby Assistance,Use of Upper Extremities Comments Mobility Comments pt continues to request use of FWW Gait Assessment Gait Gait Assistance Standby Assistance Required: Distance (Feet) 200 Assistive Devices Assistive Device Gait Belt,Front Wheeled Walker Gait Deviations General Gait Pattern Flexed Trunk Factors Limiting Gait Function Factors Limiting Decreased Activity Tolerance Gait Function Comments Gait Comments pt requests to use the FWW for gait this visit, continues to feel weaker than baseline PT-Balance Assessment Sitting Balance and Reactions Static Sitting Normal Balance Ability Dynamic Sitting Normal Balance Ability Standing Balance and Reactions Static Standing Good Balance Ability Dynamic Standing Good Balance Ability Device Used FWW M5 PT-IP Objective Assessments Start: 09/01/25 15:38 Freq: NEEDED Status: Active Protocol: Document 09/02/25 09:45 DLM (Rec: 09/02/25 11:01 DLM Desktop) Orientation Orientation/Cognition Level of Alertness Alert Orientation Name,Age,Birthday,Month,Date,Year,Day of Week,Place, Situation Language Function No Deficits Noted Ability Safety Awareness Decreased Safety Awareness Comments decreased problem solving noted at this time Gross Range of Motion Upper Extremity ROM Assessment Within Functional Limits Lower Extremity ROM Assessment Within Functional Limits Strength Upper Extremity Strength Assessment Within Functional Limits Lower Extremity Strength Assessment Within Functional Limits Coordination Assessment Gross Coordination Gross Coordination WNL Sensation Assessment Sensation Gross Sensation WNL Muscle Tone Muscle Tone WNL Yes M6 PT-IP Treatment Start: 09/01/25 15:38 Freq: NEEDED Status: Active Protocol: Document 09/02/25 09:45 DLM (Rec: 09/02/25 11:01 DLM Desktop) Physical Therapy Treatment Education Education Provided Safety Other Treatments Other Treatment discussed gradual progression of activity at home Performed M7 PT-IP Assessment and Plan Start: 09/01/25 15:38 Freq: NEEDED Status: Active Protocol: Document 09/02/25 09:45 DLM (Rec: 09/02/25 11:01 DLM Desktop) PT Summary Assessment and Plan Potential Rehabilitation Excellent Potential Status of Condition Evolving at Evaluation Summary Impairments Strength,Balance,Transfers,Gait,Activity Tolerance Assessment Summary Anuradha is alert and resting in bed. Her IV was found in her bed linens and her nurse was notified. IV site not bleeding at this time. Noted her clothing wet with urine so pt was cleaned up before further mobility this visit. Pt has diarrhea start with incontinence with the start of mobility pt used bedside commode before gait. She continue to feel safer using FWW for mobility and gait today. She does not use a device at baseline. She was able to ambulate in the ace with the FWW with a safe gait pattern. Will continue to follow to help progress pt to least restrictive device as her functional strength improves after septic UTI. She appears safe to discharge home with support of her friends when she his medically stable. Pt does not feels she needs further Physical Therapy after discharge. Pt owns a FWW to use at home as needed. Goals Transfer Goal Independent Gait Goal Independent Gait Distance 300 feet Days to Meet Goals 2 Frequency of Treatment Frequency Of Once a Day Treatment Treatment Plan Physical Therapy Gait Training,Balance Retraining,Discharge Planning Treatment Plan Precautions Other Precautions admitted with confusion Recommendations To Nursing Amount of Assist Standby Assistance Needed Discharge Recommendations PT Discharge Home with Assistance Recommendations Other Discharge pt does not want home health, she reports her friends Recommendations can help her pt to use a FWW at discharge Transportation Needs Private Vehicle at Discharge - PT assist one
--- NOTE | 2025-09-02 12:03 | PC.NURSE ---
Pt sitting in chair w/o incidence. A/O , denies discomfort Orders for D/C received. SL D/C intact. TRansportation here Home instructions given. Pt escorted by staff via W/C to waitning vehicle D/C in stable status
== END 2025-09-02 | disposition home or self-care (01) | DRG 872 ==
LOC: ED 22:04 → AC 08-31 00:07
PROVIDERS: Hospitalist; Admitting Provider Internal Medicine; Emergency Provider Emergency Medicine; PCP Internal Medicine; Referring Provider Emergency Medicine; Visit Provider Internal Medicine
DX: A41.51 Sepsis due to Escherichia coli [E. coli] (principal); N39.0 Urinary tract infection, site not specified; E87.1 Hypo-osmolality and hyponatremia; E86.0 Dehydration; E03.9 Hypothyroidism, unspecified; K59.09 Other constipation; I10 Essential (primary) hypertension; Z87.891 Personal history of nicotine dependence; Z79.890 Hormone replacement therapy
CPT/HCPCS: 36415; 71250; 74176; 80048; 80053; 81001; 83605; 84145; 85025; 85027; 85610; 85730; 87040; 87077; 87086; 87154; 87186; 93005; 96365; 97162; 97166; 99284; 99285; J0696; J1644; J2405; J2543; J7030; J7050

== ENCOUNTER → 2025-09-27 11:15 | Outpatient (CLI) | payer MEDICARE, SELFPAY ==
[2025-08-31 01:45] VITALS: BMI 21.4
--- NOTE | 2025-09-27 11:17 | DI.RAD.S_ITS ---
PROCEDURE: XR DEXA AXIAL SKELETON INDICATIONS: Prolia; Osteoporosis screening COMPARISON: [facility], , XR DEXA AXIAL SKELETON, 01/02/2021, 15:01. FINDINGS: Lumbar Spine: Bone mineral density 1.023 g/cm2, T score -0.2, previously -1. Left Femoral Neck: Bone mineral density 0.621 g/cm2, T score -2.1. Left Hip: Bone mineral density 0.668 g/cm2, T score -2.2, unchanged. Fracture Risk Calculation (when applicable): 10-year fracture risk of a major osteoporotic fracture 13 percent and of a hip fracture 4.2 percent. (T score greater or equal to -1.0 to: NORMAL) (T score from -1.1 to -2.4: OSTEOPENIA) (T score less than or equal to -2.5: OSTEOPOROSIS) IMPRESSION: Osteopenia. Improved T-score of the lumbar spine. Follow-up guidelines as follows: Osteoporosis: Consider a repeat DEXA and Vertebral Fracture Assessment (VFA) exam in 2 years or sooner if medically necessary, to reassess this patient's status. Osteopenia: Consider a repeat DEXA in 2-3 years to reassess this patient's status, or if there is a new clinical indication. Normal: Consider a repeat DEXA in 5 years or sooner, or if there is a new clinical indication. All treatment decisions require clinical judgment and consideration of individual patient factors, including patient preferences, comorbidities, previous drug use, risk factors not captured in the FRAX model (e.g., frailty, falls, vitamin D deficiency, increased bone turnover, interval significant decline in bone density ) and possible under- or over-estimation of fracture risk by FRAX. In addition, the NOF Guide recommends that FDA-approved medical therapies be considered in postmenopausal women and men age >= 50 years with a: * Hip or vertebral (clinical or morphometric) fracture * T-score of <=-2.5 at the spine or hip * Ten-year fracture probability by FRAX of >= 3% for hip fracture or >=20% for major osteoporotic fracture. Dictated by: Carmine Brenner M.D. on 09/27/2025 at 23:33 Approved by: Carmine Brenner M.D. on 09/27/2025 at 23:34
== END ==
LOC: RAD 11:16
PROVIDERS: PCP Internal Medicine; Referring Provider Internal Medicine; Visit Provider Internal Medicine
DX: M81.0 Age-related osteoporosis without current pathological fracture (principal)
CPT/HCPCS: 77080